=== PATIENT | male | born 1975 | race Caucasian/White ===

== ENCOUNTER 2017-01-10 19:57 | Emergency (ER) | payer BC ==
[2017-01-10 20:13] VITALS: BP 131/86; PULSE 89; RESP 20; TEMP 98.4
--- NOTE | 2017-01-10 20:32 | ED ---
Skin/Abscess/FB HPI - General Chief complaint: Skin/Abscess/Foreign Body Stated complaint: tanning bed burn Time Seen by Provider: 01/10/17 20:21 Source: patient, RN notes reviewed Mode of arrival: ambulatory Limitations: no limitations - History of Present Illness Initial comments: 41-year-old male presents to the emergency Department chief complaint of sunburn. Patient will continue for the first time and he has burning all over the chest in the back. He's been trying aloe and Motrin at home with no improvement in his symptoms. He's been trying back. Patient states that nothing seems to make it better he is just very miserable that he should be seen.Patient denies any recent fever, chills, shortness of breath, chest pain, back pain, abdominal pain, nausea vomiting, numbness or tingling, dysuria or hematuria, constipation or diarrhea, headaches or visual changes, or any other current symptoms. - Related Data Previous Rx's Medication Instructions Recorded Diazepam [Valium] 5 mg PO HS #5 tab 01/10/17 Hydrocodone/Acetaminophen [[place] 1 each PO Q6HR PRN #20 tab 01/10/17 5-325] Allergies Allergy/AdvReac Type Severity Reaction Status Date / Time No Known Allergies Allergy Verified 01/10/17 20:13 Review of Systems ROS Statement: Those systems with pertinent positive or pertinent negative responses have been documented in the HPI. ROS Other: All systems not noted in ROS Statement are negative. Past Medical History Past Medical History: Asthma, Chest Pain / Angina, Hypertension Additional Past Medical History / Comment(s): HAS BEEN HAVING EPISODES OF BLACK STOOL FOR PAST MONTH History of Any Multi-Drug Resistant Organisms: None Reported Past Surgical History: No Surgical Hx Reported Additional Past Surgical History / Comment(s): PAIN CLINIC PROCEDURE ,WISDOM TEETH Past Anesthesia/Blood Transfusion Reactions: No Reported Reaction Past Psychological History: No Psychological Hx Reported Smoking Status: Never smoker Past Alcohol Use History: Occasional Past Drug Use History: None Reported - Past Family History Father Family Medical History: Cancer General Exam Limitations: no limitations General appearance: alert, in no apparent distress Neck exam: Present: normal inspection. Absent: tenderness, meningismus, lymphadenopathy Respiratory exam: Present: normal lung sounds bilaterally. Absent: respiratory distress, wheezes, rales, rhonchi, stridor Cardiovascular Exam: Present: regular rate, normal rhythm, normal heart sounds. Absent: systolic murmur, diastolic murmur, rubs, gallop, clicks Neurological exam: Present: alert, oriented X3, CN II-XII intact. Absent: motor sensory deficit Psychiatric exam: Present: normal affect, normal mood Skin exam: Present: warm, dry, other (Extensive sunburn to chest and back) Course Vital Signs 01/10/17 20:11 Temperature 98.4 F Pulse Rate 89 Respiratory 20 Rate Blood Pressure 131/86 O2 Sat by Pulse 98 Oximetry Medical Decision Making - Medical Decision Making 41-year-old male presents for first-degree burn due to a sunburn to the chest and back. Simvastatin [place] for pain. We discussed aloe we discussed Motrin. At this time we will give him Valium to help him sleep at night due to his discomfort. We discussed. We discussed follow-up we discussed return parameters. We discussed all the patient's questions. He stated he understood anything agreement with plan. This time the patient will be discharged home. Disposition Clinical Impression: Sunburn due to tanning bed Disposition: HOME SELF-CARE Condition: Stable Instructions: Sunburn (ED) Additional Instructions: Please use medication as discussed. Please follow up with family doctor if symptoms have not improved over the next two days. Please return to the emergency room if your symptoms increase or worsen or for any other concerns. Prescriptions: Diazepam [Valium] 5 mg PO HS #5 tab Hydrocodone/Acetaminophen [[place] 5-325] 1 each PO Q6HR PRN #20 tab PRN Reason: Pain Referrals: Avery Victoria DO [Primary Care Provider] - 1-2 days Time of Disposition: 20:31
== END 2017-01-10 20:45 | disposition home or self-care (01) ==
LOC: EC 19:57
DX: L56.8 Other specified acute skin changes due to ultraviolet radiation (principal)
CPT/HCPCS: 99282

== ENCOUNTER 2017-03-10 14:31 | Emergency (ER) | payer BC ==
[2017-03-10 15:06] VITALS: TEMP 98.3
[2017-03-10] MEDS ORDERED: ORPHENADRINE 30 MG/ML 2 ML VIAL IM STA (16:45)
[2017-03-10] MEDS ORDERED: KETOROLAC 60 MG/2 ML VIAL IM STA (16:45)
--- NOTE | 2017-03-10 16:49 | ED ---
Back Pain HPI - General Chief Complaint: Back Pain/Injury Stated Complaint: Leg Pain Time Seen by Provider: 03/10/17 16:37 Source: patient, RN notes reviewed Limitations: no limitations - History of Present Illness Initial Comments: 41-year-old male presents to the emergency department with a chief complaint of back pain. Patient suffers from chronic back pain. Patient states tingling on for about 10 years. Patient states there is no flares up and radiates down his right leg. Patient states he's had this the last 2 days. Patient states he tried [id number] Motrin Tylenol with no improvement to his symptoms. There is been no nausea or vomiting. No loss of bowel or bladder function. They were concerned due to the worsening pains without there may be something we can do to help him feel better. They deny any other symptoms at this time. They deny any injury. Patient denies any recent fever, chills, shortness of breath, chest pain, abdominal pain, nausea vomiting, numbness or tingling, dysuria or hematuria, constipation or diarrhea, headaches or visual changes, or any other current symptoms. - Related Data Home Medications Medication Instructions Recorded Confirmed Hydrochlorothiazide 25 mg PO DAILY 03/10/17 03/10/17 [Hydrochlorothiazide] Previous Rx's Medication Instructions Recorded Orphenadrine [Norflex] 100 mg PO Q12H #10 tablet.er 03/10/17 predniSONE 50 mg PO DAILY #5 tab 03/10/17 traMADol HCl [Ultram] 50 mg PO Q4H PRN #20 tab 03/10/17 Allergies Allergy/AdvReac Type Severity Reaction Status Date / Time No Known Allergies Allergy Verified 03/10/17 15:06 Review of Systems ROS Statement: Those systems with pertinent positive or pertinent negative responses have been documented in the HPI. ROS Other: All systems not noted in ROS Statement are negative. Past Medical History Past Medical History: Asthma, Chest Pain / Angina, Hypertension Additional Past Medical History / Comment(s): HAS BEEN HAVING EPISODES OF BLACK STOOL FOR PAST MONTH History of Any Multi-Drug Resistant Organisms: None Reported Past Surgical History: No Surgical Hx Reported Additional Past Surgical History / Comment(s): PAIN CLINIC PROCEDURE ,WISDOM TEETH Past Anesthesia/Blood Transfusion Reactions: No Reported Reaction Past Psychological History: No Psychological Hx Reported Smoking Status: Never smoker Past Alcohol Use History: Occasional Past Drug Use History: None Reported - Past Family History Father Family Medical History: Cancer General Exam Limitations: no limitations General appearance: alert, in no apparent distress Eye exam: Present: normal appearance, PERRL, EOMI. Absent: scleral icterus, conjunctival injection, periorbital swelling ENT exam: Present: normal exam, mucous membranes moist Neck exam: Present: normal inspection. Absent: tenderness, meningismus, lymphadenopathy Respiratory exam: Present: normal lung sounds bilaterally. Absent: respiratory distress, wheezes, rales, rhonchi, stridor Cardiovascular Exam: Present: regular rate, normal rhythm, normal heart sounds. Absent: systolic murmur, diastolic murmur, rubs, gallop, clicks Back exam: Present: normal inspection, full ROM, other (Positive right straight leg raise on the right). Absent: tenderness, CVA tenderness (R), CVA tenderness (L), muscle spasm, paraspinal tenderness, vertebral tenderness, rash noted Neurological exam: Present: alert, oriented X3 Psychiatric exam: Present: normal affect, normal mood Skin exam: Present: warm, dry, intact, normal color. Absent: rash Course Vital Signs 03/10/17 15:00 Temperature 98.3 F Pulse Rate 78 Respiratory 18 Rate Blood Pressure 143/87 O2 Sat by Pulse 97 Oximetry Medical Decision Making - Medical Decision Making 41-year-old male presents for low back pain with radiation of the right leg. This time patient's symptoms are most consistent with sciatica. This time and discussed with prednisone and muscle relaxers. We discussed follow-up and [facility] We discussed return parameters all patient's questions. He stated he understood and he is in agreement plan. He will be discharged home. Disposition Clinical Impression: Sciatica, right side Disposition: HOME SELF-CARE Condition: Stable Instructions: Sciatica (ED), Lower Back Exercises (ED) Additional Instructions: Please use medication as discussed. Please follow up with family doctor if symptoms have not improved over the next two days. Please return to the emergency room if your symptoms increase or worsen or for any other concerns. Prescriptions: Orphenadrine [Norflex] 100 mg PO Q12H #10 tablet.er predniSONE 50 mg PO DAILY #5 tab traMADol HCl [Ultram] 50 mg PO Q4H PRN #20 tab PRN Reason: Pain Referrals: Avery Victoria DO [Primary Care Provider] - 1-2 days Abbey Moody DO [Doctor of Osteopathic Medicine] - 1-2 days Time of Disposition: 16:49
[2017-03-10 16:58] VITALS: BP 140/68; PULSE 80; RESP 20
== END 2017-03-10 16:57 | disposition home or self-care (01) ==
LOC: EC 14:31
DX: M54.31 Sciatica, right side (principal); I10 Essential (primary) hypertension; Z79.899 Other long term (current) drug therapy
CPT/HCPCS: 99283; 96372 ×2; J2360; J1885

== ENCOUNTER 2017-07-11 19:32 | Emergency (ER) | payer BC, OTHER ==
[2017-07-11 19:40] VITALS: BP 138/72; PULSE 82; RESP 18; TEMP 97.4
--- NOTE | 2017-07-11 19:54 | ED ---
URI HPI - General Chief Complaint: Upper Respiratory Infection Stated Complaint: Sore Throat Time Seen by Provider: 07/11/17 19:41 Source: patient, RN notes reviewed Mode of arrival: ambulatory Limitations: no limitations - History of Present Illness Initial Comments: 42-year-old male presents emergency Department chief complaint of URI symptoms times has for 5 days. Patient states is progressively getting worse. Patient has sinus pressure, drainage. Patient states she has a productive cough in the morning which improves throughout the day. He does have a history of asthma and states that he has used his inhaler more now and he has been wheezing. Patient denies any fever, chills. Patient does complain of sinus headache. Patient states his chest and [id number] medications no relief. Patient states that initially had a sore throat but states that those improving. Drainage worse. - Related Data Home Medications Medication Instructions Recorded Confirmed Hydrochlorothiazide 25 mg PO DAILY 03/10/17 03/10/17 [Hydrochlorothiazide] Previous Rx's Medication Instructions Recorded Orphenadrine [Norflex] 100 mg PO Q12H #10 tablet.er 03/10/17 predniSONE 50 mg PO DAILY #5 tab 03/10/17 traMADol HCl [Ultram] 50 mg PO Q4H PRN #20 tab 03/10/17 Amoxicillin/Potassium Clav 1 tab PO Q12HR #20 tab 07/11/17 [Augmentin 875-125 Tablet] Fluticasone Nasal [place] [Flonase 2 spr EA NOSTRIL DAILY #1 bottle 07/11/17 Nasal [place]] methylPREDNISolone [Medrol Dose 4 mg PO DIRECTED #1 pack 07/11/17 Pack] Allergies Allergy/AdvReac Type Severity Reaction Status Date / Time No Known Allergies Allergy Verified 07/11/17 19:36 Review of Systems ROS Statement: Those systems with pertinent positive or pertinent negative responses have been documented in the HPI. ROS Other: All systems not noted in ROS Statement are negative. Past Medical History Past Medical History: Asthma, Chest Pain / Angina, Hypertension Additional Past Medical History / Comment(s): HAS BEEN HAVING EPISODES OF BLACK STOOL FOR PAST MONTH History of Any Multi-Drug Resistant Organisms: None Reported Past Surgical History: No Surgical Hx Reported Additional Past Surgical History / Comment(s): PAIN CLINIC PROCEDURE ,WISDOM TEETH Past Anesthesia/Blood Transfusion Reactions: No Reported Reaction Past Psychological History: No Psychological Hx Reported Smoking Status: Never smoker Past Alcohol Use History: Occasional Past Drug Use History: None Reported - Past Family History Father Family Medical History: Cancer General Exam Limitations: no limitations General appearance: alert, in no apparent distress Head exam: Present: atraumatic, normocephalic, normal inspection Eye exam: Present: normal appearance, PERRL, EOMI. Absent: scleral icterus, conjunctival injection, periorbital swelling ENT exam: Present: mucous membranes moist, TM's normal bilaterally, normal external ear exam, other (Sinus tenderness). Absent: normal oropharynx ( Postnasal drainage) Neck exam: Present: normal inspection, full ROM. Absent: tenderness, meningismus, lymphadenopathy Respiratory exam: Present: normal lung sounds bilaterally. Absent: respiratory distress, wheezes, rales, rhonchi, stridor Cardiovascular Exam: Present: regular rate, normal rhythm, normal heart sounds. Absent: systolic murmur, diastolic murmur, rubs, gallop, clicks GI/Abdominal exam: Present: soft, normal bowel sounds. Absent: distended, tenderness, guarding, rebound, rigid Skin exam: Present: warm, dry, intact, normal color. Absent: rash Course Vital Signs 07/11/17 19:37 Temperature 97.4 F L Pulse Rate 82 Respiratory 18 Rate Blood Pressure 138/72 O2 Sat by Pulse 96 Oximetry Medical Decision Making - Medical Decision Making 42-year-old male presented for URI symptoms. Patient has acute sinusitis will be placed on Augmentin. Patient does have a history of asthma and complaining of some wheezing there is clear at this time. Patient we given a steroid and Flonase. Return parameters were discussed. Disposition Clinical Impression: Sinusitis Disposition: HOME SELF-CARE Condition: Stable Instructions: Sinusitis (ED) Additional Instructions: Please return to the Emergency Department if symptoms worsen or any other concerns. Prescriptions: Amoxicillin/Potassium Clav [Augmentin 875-125 Tablet] 1 tab PO Q12HR #20 tab Fluticasone Nasal [place] [Flonase Nasal [place]] 2 spr EA NOSTRIL DAILY #1 bottle methylPREDNISolone [Medrol Dose Pack] 4 mg PO DIRECTED #1 pack Referrals: Avery Victoria DO [Primary Care Provider] - 1-2 days Time of Disposition: 19:54
[2017-07-11] MEDS ORDERED: cefTRIAXone 1,000 MG VIAL (IM USE) IM STA (20:04)
== END 2017-07-11 20:25 | disposition home or self-care (01) ==
LOC: EC 19:32
DX: J32.9 Chronic sinusitis, unspecified (principal); I10 Essential (primary) hypertension; Z79.899 Other long term (current) drug therapy
CPT/HCPCS: 99283; 96372; J0696

== ENCOUNTER 2019-06-07 07:58 | Emergency (ER) | payer BC ==
[2019-06-07 08:09] VITALS: RESP 18
[2019-06-07] MEDS ORDERED: ONDANSETRON 4 MG/2 ML VIAL IVP STA (08:16)
[2019-06-07] MEDS ORDERED: HYDROmorphone 0.5 MG/0.5 ML SYRINGE IVP STA (08:16)
[2019-06-07] MEDS ORDERED: SODIUM CHLORIDE 0.9% 1,000 ML IV STA (08:16)
--- NOTE | 2019-06-07 08:19 | ED ---
General Adult HPI - General Chief complaint: Abdominal Pain Stated complaint: Abd.pain/vomiting/sob Time Seen by Provider: 06/07/19 08:10 Source: patient, family, RN notes reviewed Mode of arrival: ambulatory Limitations: no limitations - History of Present Illness Initial comments: Patient 44-year-old male presented to the emergency room today with chief complaint of increased abdominal pain with nausea and vomiting. Patient does admit that symptoms started around 2 AM with symptoms of nausea after eating. 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 Patient states that starting to feel better stop to get something to eat on his way home from work and the pain increased. States is experiencing increased pain in the upper right side and epigastric area. Patient does admit to some radiation to the back. Patient denies any other complaints or symptoms. Patient denies any recent fever, chills, shortness of breath, chest pain, back pain, headaches or visual changes, or any other complaints. - Related Data Home Medications Medication Instructions Recorded Confirmed Albuterol Inhaler [Ventolin Hfa 2 puff INHALATION RT-Q6H PRN 07/11/17 07/11/17 Inhaler] Cetirizine HCl [Zyrtec] 10 mg PO DAILY 07/11/17 07/11/17 Cholecalciferol [Vitamin D3] 1,000 unit PO DAILY 07/11/17 07/11/17 D-Methorphan/PE/Acetaminophen 1 tab PO DAILY PRN 07/11/17 07/11/17 [Theraflu Multi-Symp Cold Cplt] Dm/Acetaminophen/Doxylamine [Vicks 30 ml PO HS PRN 07/11/17 07/11/17 Nyquil Cold & Flu Liquid] Metoprolol Tartrate [Lopressor] 50 mg PO DAILY 07/11/17 07/11/17 Multivitamins, Thera [Multivitamin 1 tab PO DAILY 07/11/17 07/11/17 (formulary)] Previous Rx's Medication Instructions Recorded Amoxicillin/Potassium Clav 1 tab PO Q12HR #20 tab 07/11/17 [Augmentin 875-125 Tablet] Fluticasone Nasal [place] [Flonase 2 spr EA NOSTRIL DAILY #1 bottle 07/11/17 Nasal [place]] methylPREDNISolone [Medrol Dose 4 mg PO DIRECTED #1 pack 07/11/17 Pack] Ondansetron Odt [Zofran ODT] 4 mg PO Q8HR PRN #20 tab 06/07/19 Allergies Allergy/AdvReac Type Severity Reaction Status Date / Time No Known Allergies Allergy Verified 06/07/19 08:06 Review of Systems ROS Statement: Those systems with pertinent positive or pertinent negative responses have been documented in the HPI. ROS Other: All systems not noted in ROS Statement are negative. Past Medical History Past Medical History: Asthma, Chest Pain / Angina, Hypertension Additional Past Medical History / Comment(s): HAS BEEN HAVING EPISODES OF BLACK STOOL FOR PAST MONTH History of Any Multi-Drug Resistant Organisms: None Reported Past Surgical History: No Surgical Hx Reported Additional Past Surgical History / Comment(s): PAIN CLINIC PROCEDURE ,WISDOM TEETH Past Anesthesia/Blood Transfusion Reactions: No Reported Reaction Past Psychological History: No Psychological Hx Reported Smoking Status: Never smoker Past Alcohol Use History: Occasional Past Drug Use History: None Reported - Past Family History Father Family Medical History: Cancer General Exam - General Exam Comments Initial Comments: General: The patient is awake and alert, in no distress, and does not appear acutely ill. Ears, nose, mouth and throat: There are moist mucous membranes and no oral lesions. Neck: The neck is supple, there is no tenderness or JVD. Cardiovascular: There is a regular rate and rhythm. No murmur, rub or gallop is appreciated. Respiratory: Lungs are clear to auscultation, respirations are non-labored, breath sounds are equal. No wheezes, stridor, rales, or rhonchi. Gastrointestinal: I'm soft on palpation. Patient does have tenderness epigastric right upper quadrant. No rebound, guarding. Musculoskeletal: Normal ROM, no tenderness. Strength 5/5. Sensation intact. Neurological: A&O x 3. CN II-XII intact, There are no obvious motor or sensory deficits. Coordination appears grossly intact. Speech is normal. Skin: Skin is warm and dry and no rashes or lesions are noted. Psychiatric: Cooperative, appropriate mood & affect, normal judgment. Limitations: no limitations Course Vital Signs 06/07/19 08:06 Temperature 97.6 F Pulse Rate 71 Respiratory 18 Rate Blood Pressure 126/85 O2 Sat by Pulse 98 Oximetry Medical Decision Making - Medical Decision Making Patient's labs been reviewed and are unremarkable. Normal white count. Patient's liver enzymes are normal. Alk phos and bilirubin are negative. Patient's ultrasound been reviewed. It is possible gallstones visualized. No evidence for inflammation for obvious acute cholecystitis at this time. Patient is comfortable. Options were discussed with the patient he feels comfortable being discharged home currently. Be given information to follow-up with surgeon for further evaluation. He is advised to return to emergency room symptoms increase worsen. Stay and is in agreement. - Lab Data Result diagrams: 06/07/19 08:25 06/07/19 08:25 Lab Results 06/07/19 06/07/19 06/07/19 Range/Units 08:25 08:25 08:25 WBC 4.6 (3.8-10.6) k/uL RBC 5.26 (4.30-5.90) m/uL Hgb 13.7 (13.0-17.5) gm/dL Hct 43.3 (39.0-53.0) % MCV 82.4 (80.0-100.0) fL MCH 26.1 (25.0-35.0) pg MCHC 31.7 (31.0-37.0) g/dL RDW 14.8 (11.5-15.5) % Plt Count 228 (150-450) k/uL Neutrophils % 61 % Lymphocytes % 29 % Monocytes % 6 % Eosinophils % 3 % Basophils % 0 % Neutrophils # 2.8 (1.3-7.7) k/uL Lymphocytes # 1.3 (1.0-4.8) k/uL Monocytes # 0.3 (0-1.0) k/uL Eosinophils # 0.1 (0-0.7) k/uL Basophils # 0.0 (0-0.2) k/uL Sodium 143 (137-145) mmol/L Potassium 3.9 (3.5-5.1) mmol/L Chloride 107 (98-107) mmol/L Carbon Dioxide 28 (22-30) mmol/L Anion Gap 8 mmol/L BUN 13 (9-20) mg/dL Creatinine 0.72 (0.66-1.25) mg/dL Est GFR (CKD-EPI)AfAm >90 (>60 ml/min/1.73 sqM) Est GFR (CKD-EPI)NonAf >90 (>60 ml/min/1.73 sqM) Glucose 124 H (74-99) mg/dL Calcium 9.0 (8.4-10.2) mg/dL Total Bilirubin 1.1 (0.2-1.3) mg/dL AST 27 (17-59) U/L ALT 37 (21-72) U/L Alkaline Phosphatase 74 (38-126) U/L Troponin I <0.012 (0.000-0.034) ng/mL Total Protein 6.8 (6.3-8.2) g/dL Albumin 4.0 (3.5-5.0) g/dL Amylase 54 (30-110) U/L Lipase 86 (23-300) U/L Disposition Clinical Impression: Abdominal pain Disposition: HOME SELF-CARE Condition: Good Instructions (If sedation given, give patient instructions): Abdominal Pain (ED) Additional Instructions: Please use medication as discussed. Please follow-up with surgeon/family doctor in the next 2 days of symptoms have not improved. Please return to emergency room if the symptoms increase or worsen or for any other concerns. Prescriptions: Ondansetron Odt [Zofran ODT] 4 mg PO Q8HR PRN #20 tab PRN Reason: Nausea Is patient prescribed a controlled substance at d/c from ED?: No Referrals: Edel Cox MD [Primary Care Provider] - 1-2 days Douglas Biu DO [Doctor of Osteopathic Medicine] - 1-2 days Time of Disposition: 10:02
[2019-06-07] MEDS ORDERED: diphenhydrAMINE 50 MG/ML 1 ML VIAL IVP STA (08:35)
[2019-06-07 08:42] LABS: Basophils % (A) 0 %; Eosinophils # (A) 0.1 k/uL (0-0.7); Eosinophils % (A) 3 %; HCT 43.3 % (39.0-53.0); HGB 13.7 gm/dL (13.0-17.5); Lymphocytes # (A) 1.3 k/uL (1.0-4.8); Lymphocytes % (A) 29 %; MCH 26.1 pg (25.0-35.0); MCHC 31.7 g/dL (31.0-37.0); MCV 82.4 fL (80.0-100.0); Mean Platelet Volume 6.5; Monocytes # (A) 0.3 k/uL (0-1.0); Monocytes % (A) 6 %; Neutrophils # (A) 2.8 k/uL (1.3-7.7); Neutrophils % (A) 61 %; Platelet Count 228 k/uL (150-450); RBC 5.26 m/uL (4.30-5.90); RDW 14.8 % (11.5-15.5); WBC 4.6 k/uL (3.8-10.6)
[2019-06-07 08:54] LABS: ALT 37 U/L (21-72); AST 27 U/L (17-59); African American GFR (CKD) >90 (>60 ml/min/1.73 sqM); Alkaline Phosphatase 74 U/L (38-126); Amylase 54 U/L (30-110); Anion Gap 8 mmol/L; Blood Urea Nitrogen 13 mg/dL (9-20); Carbon Dioxide 28 mmol/L (22-30); Chloride 107 mmol/L (98-107); Glucose 124 mg/dL (74-99); Potassium 3.9 mmol/L (3.5-5.1); Sodium 143 mmol/L (137-145); Total Bilirubin 1.1 mg/dL (0.2-1.3); Total Protein 6.8 g/dL (6.3-8.2)
--- NOTE | 2019-06-07 09:27 | US ---
EXAMINATION TYPE: US abdomen limited DATE OF EXAM: 06/07/2019 COMPARISON: NONE CLINICAL HISTORY: Pain. RUQ pain since last night, vomiting, patient not NPO - ate 1 to 2 hours ago EXAM MEASUREMENTS: Liver Length: 19.3 cm Gallbladder Wall: 0.3 cm CBD: 0.5 cm Right Kidney: 10.7 x 4.4 x 5.0 cm Technical limitations due to patient's body habitus and large amount of overlying bowel content Pancreas: Obscured by bowel gas Liver: enlarged, attenuating Gallbladder: hydropic with probable stone near neck = 2.2cm Evidence for sonographic Stubbs's sign: yes CBD: visualized portion appears wnl Right Kidney: no evidence of hydronephrosis There is no ascites. Right kidney shows normal cortical medullary differentiation. IMPRESSION: Technically limited exam. Findings may be indicative of hepatic steatosis, hepatomegaly. Hydropic gallbladder with calculus at the level of the neck of the gallbladder. Borderline gallbladde r wall thickening, correlate for possible cholecystitis.
[2019-06-07 10:30] VITALS: BP 118/70; PULSE 74; TEMP 98
== END 2019-06-07 10:31 | disposition home or self-care (01) ==
LOC: EC 07:58
DX: R10.11 Right upper quadrant pain (principal); R10.13 Epigastric pain; R11.2 Nausea with vomiting, unspecified; M54.9 Dorsalgia, unspecified; J45.909 Unspecified asthma, uncomplicated; I10 Essential (primary) hypertension; Z79.899 Other long term (current) drug therapy
CPT/HCPCS: 36415; 93005; 80053; 82150; 83690; 84484; 85025; 76705; 99284; 96374; 96375 ×2; 96361; J1200; J2405; J1170

== ENCOUNTER 2019-06-09 03:27 | Emergency (ER) | payer BC ==
[2019-06-09 03:55] VITALS: TEMP 97.8
[2019-06-09 03:55] LABS: Basophils % (A) 0 %; Eosinophils # (A) 0.1 k/uL (0-0.7); Eosinophils % (A) 3 %; HCT 43.5 % (39.0-53.0); HGB 14.3 gm/dL (13.0-17.5); Lymphocytes # (A) 1.1 k/uL (1.0-4.8); Lymphocytes % (A) 26 %; MCH 26.6 pg (25.0-35.0); MCHC 32.7 g/dL (31.0-37.0); MCV 81.3 fL (80.0-100.0); Mean Platelet Volume 6.4; Monocytes # (A) 0.4 k/uL (0-1.0); Monocytes % (A) 9 %; Neutrophils # (A) 2.6 k/uL (1.3-7.7); Neutrophils % (A) 59 %; Platelet Count 198 k/uL (150-450); RBC 5.36 m/uL (4.30-5.90); RDW 14.9 % (11.5-15.5); WBC 4.4 k/uL (3.8-10.6)
[2019-06-09 04:04] LABS: ALT 30 U/L (21-72); AST 31 U/L (17-59); African American GFR (CKD) >90 (>60 ml/min/1.73 sqM); Albumin 4.2 g/dL (3.5-5.0); Alkaline Phosphatase 67 U/L (38-126); Amylase 50 U/L (30-110); Anion Gap 6 mmol/L; Blood Urea Nitrogen 14 mg/dL (9-20); Calcium 9.2 mg/dL (8.4-10.2); Carbon Dioxide 28 mmol/L (22-30); Chloride 107 mmol/L (98-107); Glucose 135 mg/dL (74-99); Non-African American GFR(CKD) >90 (>60 ml/min/1.73 sqM); Sodium 141 mmol/L (137-145); Total Bilirubin 0.9 mg/dL (0.2-1.3)
[2019-06-09 04:06] LABS: Potassium 4.2 mmol/L (3.5-5.1)
[2019-06-09] MEDS ORDERED: ONDANSETRON 4 MG/2 ML VIAL IVP STA (04:27)
[2019-06-09] MEDS ORDERED: MORPHINE SULFATE 4 MG/ML SYRINGE IVP STA ×2 (04:27→06:10)
--- NOTE | 2019-06-09 04:29 | XR ---
EXAM: XR Abdomen, 1 View CLINICAL HISTORY: ITS.REASON XR Reason: abdominal pain TECHNIQUE: Frontal supine view of the abdomen/pelvis. COMPARISON: No relevant prior studies available. FINDINGS: Gastrointestinal tract: There is a relative possibly of bowel gas throughout the abdomen with minimal gas noted in the stomach and the ascending colon. There is some gas suggested in the central pelvis which is presumed in the sigmoid colon. No dilation. Bones/joints: Unremarkable. Tubes, lines and devices: Overlying EKG lead artifact is noted. IMPRESSION: Relative paucity bowel gas is nonspecific and may be normal variation. However, fluid-filled loops of bowel may also give this appearance. No dilated bowel loops or gastric distention, definitive for bowel obstruction. Further potential imaging should be based on clinical criteria.
--- NOTE | 2019-06-09 05:01 | ED ---
Abdominal Pain HPI - General Chief Complaint: Abdominal Pain Stated Complaint: revisit/gallbladder Time Seen by Provider: 06/09/19 03:30 Source: patient, family Mode of arrival: ambulatory Limitations: no limitations - History of Present Illness Initial Comments: Harjeet is an obese 44-year-old gentleman who was seen and evaluated earlier this week and diagnosed with gallstones, patient returns to the emergency department today for reevaluation of right upper quadrant abdominal pain. Patient reports that he had macaroni and cheese for dinner and immediately developed pain in his right upper quadrant afterwards. Pain is sharp stabbing in the right upper quadrant and associated with nausea but no vomiting. Patient denies any change in bowel or bladder habits his last bowel movement was this afternoon and was normal in color caliber and consistency. Patient states he was told to make dietary modifications however his understanding was essentially that he could not eat anything so he decided not to make any modifications. Patient was referred to surgery for outpatient management, he states that he contacted the surgeon's office but has not established follow-up visit. - Related Data Home Medications Medication Instructions Recorded Confirmed Albuterol Inhaler [Ventolin Hfa 2 puff INHALATION RT-Q6H PRN 07/11/17 07/11/17 Inhaler] Cetirizine HCl [Zyrtec] 10 mg PO DAILY 07/11/17 07/11/17 Cholecalciferol [Vitamin D3] 1,000 unit PO DAILY 07/11/17 07/11/17 D-Methorphan/PE/Acetaminophen 1 tab PO DAILY PRN 07/11/17 07/11/17 [Theraflu Multi-Symp Cold Cplt] Dm/Acetaminophen/Doxylamine [Vicks 30 ml PO HS PRN 07/11/17 07/11/17 Nyquil Cold & Flu Liquid] Metoprolol Tartrate [Lopressor] 50 mg PO DAILY 07/11/17 07/11/17 Multivitamins, Thera [Multivitamin 1 tab PO DAILY 07/11/17 07/11/17 (formulary)] Previous Rx's Medication Instructions Recorded Amoxicillin/Potassium Clav 1 tab PO Q12HR #20 tab 07/11/17 [Augmentin 875-125 Tablet] Fluticasone Nasal [place] [Flonase 2 spr EA NOSTRIL DAILY #1 bottle 07/11/17 Nasal [place]] methylPREDNISolone [Medrol Dose 4 mg PO DIRECTED #1 pack 07/11/17 Pack] Ondansetron Odt [Zofran ODT] 4 mg PO Q8HR PRN #20 tab 06/07/19 Allergies Allergy/AdvReac Type Severity Reaction Status Date / Time No Known Allergies Allergy Verified 06/09/19 03:34 Review of Systems ROS Statement: Those systems with pertinent positive or pertinent negative responses have been documented in the HPI. ROS Other: All systems not noted in ROS Statement are negative. Past Medical History Past Medical History: Asthma, Chest Pain / Angina, Hypertension Additional Past Medical History / Comment(s): HAS BEEN HAVING EPISODES OF BLACK STOOL FOR PAST MONTH History of Any Multi-Drug Resistant Organisms: None Reported Past Surgical History: No Surgical Hx Reported Additional Past Surgical History / Comment(s): PAIN CLINIC PROCEDURE ,WISDOM TEETH Past Anesthesia/Blood Transfusion Reactions: No Reported Reaction Past Psychological History: No Psychological Hx Reported Smoking Status: Never smoker Past Alcohol Use History: Occasional Past Drug Use History: None Reported - Past Family History Father Family Medical History: Cancer General Exam - General Exam Comments Initial Comments: Physical Exam GENERAL: Patient is well-developed and well-nourished. Patient is nontoxic and well-hydrated and is in no distress. HENT: Normocephalic, Atraumatic. EYES: PERRL, EOMI PULMONARY: Unlabored respirations. No audible rales rhonchi or wheezing was noted. CARDIOVASCULAR: There is a regular rate and rhythm without any murmurs gallops or rubs. ABDOMEN: Soft and nontender with normal bowel sounds. SKIN: Skin is clear with no lesions or rashes and otherwise unremarkable. : Deferred NEUROLOGIC: Patient is alert and oriented x3. Moving all extremities spontaneously MUSCULOSKELETAL: Normal extremities with adequate strength and full range of motion. No lower extremity swelling or edema. No calf tenderness. PSYCHIATRIC: Normal psychiatric evaluation. Limitations: no limitations Course Vital Signs 06/09/19 06/09/19 03:32 06:17 Temperature 97.8 F Pulse Rate 56 L 62 Respiratory 18 17 Rate Blood Pressure 134/87 151/97 O2 Sat by Pulse 96 99 Oximetry Medical Decision Making - Medical Decision Making The patient was seen and evaluated history is obtained from the patient and review of medical record History and physical exam are concerning for symptomatic cholelithiasis as the patient has known gallstones ate a large meal of macaroni and cheese and developed symptoms of pain When I discussed with the patient the need for dietary modification patient's expresses frustration stating that if he follows this there is nothing he can eat Labs were ordered and results were no changes from previous Patient was given a repeat dose of narcotics pending CT results Patient with persistent pain after dose of morphine, a computed tomography scan was ordered to further evaluate the abdomen and resulted with no common bile duct dilatation, no gallbladder edema or abnormality. Results were discussed with patient was now resting comfortably. I advised the patient of findings. At this time the patient is comfortable with plan for discharge home. I again reiterated to the patient the importance of dietary modifications to prevent symptoms. Patient again stated that he thinks there is nothing he can eat if he can't have fatty foods, I encouraged the patient to eat grilled chicken, boiled eggs, fruits, vegetables, breads and [place] without bu tter, patient expressed irritation with this idea. Patient requested by mouth pain medications for management of his pain. I advised again that his pain should be managed by dietary modifications. Patient stated that they will just come back to the ER each time after he eats and develops pain. - Lab Data Result diagrams: 06/09/19 03:46 06/09/19 03:46 Lab Results 06/09/19 06/09/19 Range/Units 03:46 03:46 WBC 4.4 (3.8-10.6) k/uL RBC 5.36 (4.30-5.90) m/uL Hgb 14.3 (13.0-17.5) gm/dL Hct 43.5 (39.0-53.0) % MCV 81.3 (80.0-100.0) fL MCH 26.6 (25.0-35.0) pg MCHC 32.7 (31.0-37.0) g/dL RDW 14.9 (11.5-15.5) % Plt Count 198 (150-450) k/uL Neutrophils % 59 % Lymphocytes % 26 % Monocytes % 9 % Eosinophils % 3 % Basophils % 0 % Neutrophils # 2.6 (1.3-7.7) k/uL Lymphocytes # 1.1 (1.0-4.8) k/uL Monocytes # 0.4 (0-1.0) k/uL Eosinophils # 0.1 (0-0.7) k/uL Basophils # 0.0 (0-0.2) k/uL Sodium 141 (137-145) mmol/L Potassium 4.2 (3.5-5.1) mmol/L Chloride 107 (98-107) mmol/L Carbon Dioxide 28 (22-30) mmol/L Anion Gap 6 mmol/L BUN 14 (9-20) mg/dL Creatinine 0.67 (0.66-1.25) mg/dL Est GFR (CKD-EPI)AfAm >90 (>60 ml/min/1.73 sqM) Est GFR (CKD-EPI)NonAf >90 (>60 ml/min/1.73 sqM) Glucose 135 H (74-99) mg/dL Calcium 9.2 (8.4-10.2) mg/dL Total Bilirubin 0.9 (0.2-1.3) mg/dL AST 31 (17-59) U/L ALT 30 (21-72) U/L Alkaline Phosphatase 67 (38-126) U/L Total Protein 7.0 (6.3-8.2) g/dL Albumin 4.2 (3.5-5.0) g/dL Amylase 50 (30-110) U/L Lipase 97 (23-300) U/L Disposition Clinical Impression: Symptomatic cholelithiasis Disposition: HOME SELF-CARE Condition: Stable Instructions (If sedation given, give patient instructions): Biliary Colic (ED), Gallstones (ED), Low Fat Diet (ED) Is patient prescribed a controlled substance at d/c from ED?: No Referrals: Edel Cox MD [Primary Care Provider] - 1-2 days Mariya Coleman MD [STAFF PHYSICIAN] - 1-2 days
[2019-06-09 06:17] VITALS: BP 151/97; PULSE 62; RESP 17
--- NOTE | 2019-06-09 06:21 | CT ---
EXAM: CT Abdomen and Pelvis With Intravenous Contrast CLINICAL HISTORY: Pain TECHNIQUE: Axial computed tomography images of the abdomen and pelvis with intravenous contrast. CTDI is 32.8 mGy and DLP is 1439.2 mGy-cm. This CT exam was performed using one or more of the following dose reduction techniques: automated exposure control, adjustment of the mA and/or kV according to patient size, and/or use of iterative reconstruction technique. COMPARISON: No relevant prior studies available. FINDINGS: Lung bases: Unremarkable. No mass. No consolidation. ABDOMEN: Liver: Unremarkable. No mass. Gallbladder and bile ducts: Unremarkable. No calcified stones. No ductal dilation. Pancreas: Unremarkable. No mass. No ductal dilation. Spleen: Unremarkable. No splenomegaly. Adrenals: Unremarkable. No mass. Kidneys and ureters: The kidneys demonstrate normal enhancement. There is an incidental nonobstructive 4 mm renal collecting stone noted in the mid to inferior pole the left kidney. Delayed phase imaging demonstrates a 10 mm cortical cyst involving the mid to inferior pole of the anterior right kidney. Suspected smaller cortical cysts are scattered bilaterally but too small to completely characterize. Normal excreted contrast is noted on delayed phase imaging in the renal collecting systems. Stomach and bowel: There are scattered fluid-filled loops of small bowel throughout the abdomen and pelvis. Moderate stool noted in the ascending, transverse and descending colon. No obstruction. No significant focal mucosal thickening. PELVIS: Appendix: A normal caliber appendix is noted in the right lower quadrant. Bladder: Unremarkable. No mass. Reproductive: Unremarkable as visualized. ABDOMEN and PELVIS: Intraperitoneal space: Unremarkable. No free air. No significant fluid collection. Bones/joints: No acute fracture. No dislocation. Soft tissues: Unremarkable. Vasculature: Unremarkable. No abdominal aortic aneurysm. Lymph nodes: Unremarkable. No enlarged lymph nodes. IMPRESSION: There are scattered fluid-filled loops of small bowel throughout the abdomen and pelvis. This may represent normal variation or mild enteritis. No evidence for bowel obstruction. No free intraperitoneal fluid or pneumoperitoneum.
== END 2019-06-09 07:25 | disposition home or self-care (01) ==
LOC: EC 03:27
DX: K80.20 Calculus of gallbladder without cholecystitis without obstruction (principal); J45.909 Unspecified asthma, uncomplicated; I10 Essential (primary) hypertension; Z79.899 Other long term (current) drug therapy; Z86.79 Personal history of other diseases of the circulatory system
CPT/HCPCS: 36415; 80053; 82150; 83690; 85025; 74018; 74177; 99284; 96374; 96375; 96376; J2270; J2405; Q9967

== ENCOUNTER 2019-06-09 17:49 | Observation (INO) | payer BC ==
[2019-06-09] MEDS ORDERED: METOCLOPRAMIDE 5 MG/ML 2 ML VIAL IVP STA (18:14)
[2019-06-09] MEDS ORDERED: SODIUM CHLORIDE 0.9% 1,000 ML IV STA (18:14)
[2019-06-09] MEDS ORDERED: SODIUM CHLORIDE 0.9% 500 ML 500 ML IV STA (18:14)
[2019-06-09] MEDS ORDERED: KETOROLAC 30 MG/ML 1 ML VIAL IVP STA (18:14)
--- NOTE | 2019-06-09 18:17 | ED ---
General Adult HPI - General Chief complaint: Abdominal Pain Stated complaint: RUQ PAIN Time Seen by Provider: 06/09/19 18:01 Source: patient, RN notes reviewed Mode of arrival: ambulatory Limitations: no limitations - History of Present Illness Initial comments: Patient is a pleasant 44-year-old male returning to the emergency Department with complaints of right upper quadrant pain. Patient states he has been here twice in the past 2 days and this is third visit. Patient has discomfort right upper quadrant. Discomfort does get worse with eating. Patient did have ultrasound which showed gallstones. Patient then had computed tomography scan did not show any abnormality. Patient does have associated nausea and did vomit just prior to arrival. No Fevers. - Related Data Home Medications Medication Instructions Recorded Confirmed Albuterol Inhaler [Ventolin Hfa 2 puff INHALATION RT-Q6H PRN 07/11/17 06/09/19 Inhaler] Multivitamins, Thera [Multivitamin 1 tab PO DAILY 07/11/17 06/09/19 (formulary)] Metoprolol Tartrate [Lopressor] 50 mg PO BID 06/09/19 06/09/19 Allergies Allergy/AdvReac Type Severity Reaction Status Date / Time No Known Allergies Allergy Verified 06/09/19 18:39 Review of Systems ROS Statement: Those systems with pertinent positive or pertinent negative responses have been documented in the HPI. ROS Other: All systems not noted in ROS Statement are negative. Constitutional: Denies: fever Eyes: Denies: eye pain ENT: Denies: ear pain Respiratory: Denies: cough Cardiovascular: Denies: chest pain Endocrine: Denies: fatigue Gastrointestinal: Reports: abdominal pain, nausea, vomiting. Denies: diarrhea, constipation Genitourinary: Denies: dysuria Musculoskeletal: Denies: arthralgia Skin: Denies: rash Neurological: Denies: weakness Past Medical History Past Medical History: Asthma, Chest Pain / Angina, Hypertension Additional Past Medical History / Comment(s): HAS BEEN HAVING EPISODES OF BLACK STOOL FOR PAST MONTH History of Any Multi-Drug Resistant Organisms: None Reported Past Surgical History: No Surgical Hx Reported Additional Past Surgical History / Comment(s): PAIN CLINIC PROCEDURE ,WISDOM TEETH Past Anesthesia/Blood Transfusion Reactions: No Reported Reaction Past Psychological History: No Psychological Hx Reported Smoking Status: Never smoker Past Alcohol Use History: Occasional Past Drug Use History: None Reported - Past Family History Father Family Medical History: Cancer General Exam Limitations: no limitations General appearance: alert, in no apparent distress Head exam: Present: atraumatic Eye exam: Present: normal appearance, PERRL ENT exam: Present: normal oropharynx Neck exam: Present: normal inspection Respiratory exam: Present: normal lung sounds bilaterally Cardiovascular Exam: Present: regular rate, normal rhythm Expanded Peripheral pulses: 2+: Dorsalis Pedis (R), Dorsalis Pedis (L) GI/Abdominal exam: Present: soft, tenderness (Moderate tenderness right upper quadrant. Mild tenderness epigastric region), normal bowel sounds. Absent: rebound, rigid, pulsatile mass Extremities exam: Present: normal inspection. Absent: pedal edema, calf tenderness Neurological exam: Present: alert Psychiatric exam: Present: normal affect, normal mood Skin exam: Present: normal color Course Vital Signs 06/09/19 18:00 Temperature 98.5 F Pulse Rate 65 Respiratory 18 Rate Blood Pressure 125/86 O2 Sat by Pulse 98 Oximetry Medical Decision Making - Medical Decision Making Patient reevaluated and still complains of discomfort. Patient updated on re sults. Case discussed with Dr. méndez, who will admit. - Lab Data Result diagrams: 06/09/19 18:30 06/09/19 18:30 Lab Results 06/09/19 06/09/19 06/09/19 Range/Units 18:30 18:30 18:30 WBC 6.0 (3.8-10.6) k/uL RBC 5.43 (4.30-5.90) m/uL Hgb 14.0 (13.0-17.5) gm/dL Hct 44.3 (39.0-53.0) % MCV 81.5 (80.0-100.0) fL MCH 25.7 (25.0-35.0) pg MCHC 31.6 (31.0-37.0) g/dL RDW 14.8 (11.5-15.5) % Plt Count 209 (150-450) k/uL Neutrophils % 73 % Lymphocytes % 15 % Monocytes % 7 % Eosinophils % 2 % Basophils % 0 % Neutrophils # 4.4 (1.3-7.7) k/uL Lymphocytes # 0.9 L (1.0-4.8) k/uL Monocytes # 0.4 (0-1.0) k/uL Eosinophils # 0.1 (0-0.7) k/uL Basophils # 0.0 (0-0.2) k/uL PT 9.9 (9.0-12.0) sec INR 0.9 (<1.2) APTT 25.4 (22.0-30.0) sec Sodium 141 (137-145) mmol/L Potassium 4.3 (3.5-5.1) mmol/L Chloride 106 (98-107) mmol/L Carbon Dioxide 26 (22-30) mmol/L Anion Gap 9 mmol/L BUN 12 (9-20) mg/dL Creatinine 0.76 (0.66-1.25) mg/dL Est GFR (CKD-EPI)AfAm >90 (>60 ml/min/1.73 sqM) Est GFR (CKD-EPI)NonAf >90 (>60 ml/min/1.73 sqM) Glucose 94 (74-99) mg/dL Calcium 9.0 (8.4-10.2) mg/dL Total Bilirubin 1.1 (0.2-1.3) mg/dL AST 31 (17-59) U/L ALT 33 (21-72) U/L Alkaline Phosphatase 83 (38-126) U/L Total Protein 7.1 (6.3-8.2) g/dL Albumin 4.2 (3.5-5.0) g/dL Amylase 49 (30-110) U/L Lipase 73 (23-300) U/L - Radiology Data Radiology results: image reviewed (Abdominal x-ray shows no acute process) Disposition Clinical Impression: Symptomatic cholelithiasis Disposition: ADMITTED IP TO THIS [facility] Is patient prescribed a controlled substance at d/c from ED?: No Referrals: Edel Cox MD [Primary Care Provider] - 1-2 days Decision Time: 19:18
[2019-06-09 18:45] LABS: Basophils % (A) 0 %; Eosinophils # (A) 0.1 k/uL (0-0.7); Eosinophils % (A) 2 %; HCT 44.3 % (39.0-53.0); Lymphocytes # (A) 0.9 k/uL (1.0-4.8); Lymphocytes % (A) 15 %; MCH 25.7 pg (25.0-35.0); MCHC 31.6 g/dL (31.0-37.0); MCV 81.5 fL (80.0-100.0); Mean Platelet Volume 6.5; Monocytes # (A) 0.4 k/uL (0-1.0); Monocytes % (A) 7 %; Neutrophils # (A) 4.4 k/uL (1.3-7.7); Neutrophils % (A) 73 %; Platelet Count 209 k/uL (150-450); RBC 5.43 m/uL (4.30-5.90); RDW 14.8 % (11.5-15.5)
[2019-06-09 18:51] LABS: INR 0.9 (<1.2); Partial Thromboplastin Time 25.4 sec (22.0-30.0); Prothrombin Time 9.9 sec (9.0-12.0)
--- NOTE | 2019-06-09 18:58 | XR ---
EXAMINATION TYPE: XR KUB DATE OF EXAM: 06/09/2019 COMPARISON: Today HISTORY: Right upper quadrant pain TECHNIQUE: 2 views upright FINDINGS: There is no sign of intestinal obstruction or pneumoperitoneum. Fecal pattern is normal. Th ere is no sign of a mass. Lung bases are clear. IMPRESSION: Nonacute abdomen. No change.
[2019-06-09 19:04] LABS: ALT 33 U/L (21-72); AST 31 U/L (17-59); African American GFR (CKD) >90 (>60 ml/min/1.73 sqM); Albumin 4.2 g/dL (3.5-5.0); Alkaline Phosphatase 83 U/L (38-126); Amylase 49 U/L (30-110); Anion Gap 9 mmol/L; Blood Urea Nitrogen 12 mg/dL (9-20); Carbon Dioxide 26 mmol/L (22-30); Chloride 106 mmol/L (98-107); Glucose 94 mg/dL (74-99); Potassium 4.3 mmol/L (3.5-5.1); Sodium 141 mmol/L (137-145); Total Bilirubin 1.1 mg/dL (0.2-1.3); Total Protein 7.1 g/dL (6.3-8.2)
[2019-06-09] MEDS ORDERED: HYDROmorphone 1 MG/ML 1 ML SYRINGE IVP STA (19:07)
[2019-06-09] MEDS ORDERED: NALOXONE 0.4 MG/ML 1 ML VIAL IV PRN (19:18)
[2019-06-09] MEDS: ONDANSETRON 4 MG/2 ML VIAL IVP PRN (19:30)
[2019-06-09] MEDS ORDERED: ALBUTEROL NEBULIZED 2.5 MG/3 ML INHALATION PRN (19:49)
[2019-06-09] MEDS: AMPICILLIN-SULBACTAM 1.5 GM in SODIUM CHLORIDE 0.9% 50 ML IVPB SCH (22:17)
[2019-06-09] MEDS: HYDROmorphone 1 MG/ML 1 ML SYRINGE IVP PRN (22:19)
[2019-06-09] MEDS: PANTOPRAZOLE 40 MG/10 ML VIAL IV SCH (22:21)
[2019-06-09] MEDS: METOPROLOL TARTRATE 50 MG TAB PO SCH (22:29)
[2019-06-09] MEDS: SODIUM CHLORIDE 0.9% 1,000 ML IV SCH (22:30)
[2019-06-10 00:53] LABS: Appearance,Urine Clear (Clear); Bilirubin,Urine Negative (Negative); Blood,Urine Negative (Negative); Color,Urine Yellow; Glucose,Urine (UA) Negative (Negative); Ketones,Urine Negative (Negative); Leukocyte Esterase,Urine Negative (Negative); Nitrite,Urine Negative (Negative); PH, Urine 6.5 (5.0-8.0); Protein,Urine Negative (Negative); Urobilinogen,Urine <2.0 mg/dL (<2.0)
[2019-06-10] MEDS: HYDROmorphone 1 MG/ML 1 ML SYRINGE IVP PRN ×7 (01:20→23:15)
[2019-06-10] MEDS: AMPICILLIN-SULBACTAM 1.5 GM in SODIUM CHLORIDE 0.9% 50 ML IVPB SCH ×4 (01:20→23:22)
[2019-06-10] MEDS: SODIUM CHLORIDE 0.9% 1,000 ML IV SCH ×3 (04:53→20:00)
[2019-06-10] MEDS: METOPROLOL TARTRATE 50 MG TAB PO SCH ×2 (07:48→20:00)
[2019-06-10] MEDS: PANTOPRAZOLE 40 MG/10 ML VIAL IV SCH (07:51)
--- NOTE | 2019-06-10 10:58 | P.GSHP ---
History of Present Illness H&P Date: 06/10/19 This is a 44-year-old male who presented to emergency room with chief complaint of right upper quadrant pain in the emergency room several times before in the previous days. He states is worse after he eats pain. He was noted to have some gallstones and was supposed follow-up with a surgeon as an outpatient however his pain continued and stated he could not take it at home anymore and he could not wait. Patient has no significant past surgical history. He did have an EGD and colonoscopy 2 years ago the EGD did show a hiatal hernia with some esophagitis and gastritis. He has not been taking omeprazole. He states this pain is very different from the pain he is feeling at that time. He denies any blood in his stool he denies any bloody emesis. He has been having nausea. Past Medical History Past Medical History: Asthma, Chest Pain / Angina, Hypertension Additional Past Medical History / Comment(s): HAS BEEN HAVING EPISODES OF BLACK STOOL FOR PAST MONTH History of Any Multi-Drug Resistant Organisms: None Reported Past Surgical History: No Surgical Hx Reported Additional Past Surgical History / Comment(s): PAIN CLINIC PROCEDURE with injections, WISDOM TEETH Past Anesthesia/Blood Transfusion Reactions: No Reported Reaction Past Psychological History: No Psychological Hx Reported Smoking Status: Never smoker Past Alcohol Use History: Occasional Past Drug Use History: None Reported - Past Family History Father Family Medical History: Cancer Medications and Allergies Home Medications Medication Instructions Recorded Confirmed Type Albuterol Inhaler [Ventolin Hfa 2 puff INHALATION RT-Q6H PRN 07/11/17 06/09/19 H istory Inhaler] Multivitamins, Thera [Multivitamin 1 tab PO DAILY 07/11/17 06/09/19 History (formulary)] Metoprolol Tartrate [Lopressor] 50 mg PO BID 06/09/19 06/09/19 History Allergies Allergy/AdvReac Type Severity Reaction Status Date / Time No Known Allergies Allergy Verified 06/09/19 18:39 Surgical - Exam Osteopathic Statement: *. No significant issues noted on an osteopathic structural exam other than those noted in the History and Physical/Consult. Vital Signs Temp Pulse Resp BP Pulse Ox 98.5 F 65 18 125/86 98 06/09/19 18:00 06/09/19 18:00 06/09/19 18:00 06/09/19 18:00 06/09/19 18:00 - General well developed, well nourished, no distress - Eyes PERRL - Neck no masses, trachea midline - Respiratory normal expansion, normal respiratory effort - Cardiovascular Rhythm: regular - Abdomen mild tenderness palpation right upper quadrant no rebound rigidity or guarding Abdomen: soft - Neurologic normal coordination, normal sensation - Psychiatric oriented to time, oriented to person, oriented to place Results - Labs 06/09/19 18:30 06/09/19 18:30 Abnormal Lab Results - Last 24 Hours (Table) 06/09/19 Range/Units 18:30 Lymphocytes # 0.9 L (1.0-4.8) k/uL Diabetes panel 06/09/19 Range/Units 18:30 Sodium 141 (137-145) mmol/L Potassium 4.3 (3.5-5.1) mmol/L Chloride 106 (98-107) mmol/L Carbon Dioxide 26 (22-30) mmol/L BUN 12 (9-20) mg/dL Creatinine 0.76 (0.66-1.25) mg/dL Glucose 94 (74-99) mg/dL Calcium 9.0 (8.4-10.2) mg/dL AST 31 (17-59) U/L ALT 33 (21-72) U/L Alkaline Phosphatase 83 (38-126) U/L Total Protein 7.1 (6.3-8.2) g/dL Albumin 4.2 (3.5-5.0) g/dL Calcium panel 06/09/19 Range/Units 18:30 Calcium 9.0 (8.4-10.2) mg/dL Albumin 4.2 (3.5-5.0) g/dL Pituitary panel 06/09/19 Range/Units 18:30 Sodium 141 (137-145) mmol/L Potassium 4.3 (3.5-5.1) mmol/L Chloride 106 (98-107) mmol/L Carbon Dioxide 26 (22-30) mmol/L BUN 12 (9-20) mg/dL Creatinine 0.76 (0.66-1.25) mg/dL Glucose 94 (74-99) mg/dL Calcium 9.0 (8.4-10.2) mg/dL Adrenal panel 06/09/19 Range/Units 18:30 Sodium 141 (137-145) mmol/L Potassium 4.3 (3.5-5.1) mmol/L Chloride 106 (98-107) mmol/L Carbon Dioxide 26 (22-30) mmol/L BUN 12 (9-20) mg/dL Creatinine 0.76 (0.66-1.25) mg/dL Glucose 94 (74-99) mg/dL Calcium 9.0 (8.4-10.2) mg/dL Total Bilirubin 1.1 (0.2-1.3) mg/dL AST 31 (17-59) U/L ALT 33 (21-72) U/L Alkaline Phosphatase 83 (38-126) U/L Total Protein 7.1 (6.3-8.2) g/dL Albumin 4.2 (3.5-5.0) g/dL Assessment and Plan Assessment: cholecystitis Plan: discussed the risks benefits and alternatives to laparoscopic cholecystectomy possible open to the patient risks of bleeding infection damage surrounding tissue need further operation damage to common bile duct patient stated he understood agreed and consented informed consent was obtained.he remain nothing by mouth started on IV antibiotics and IV fluids. I also discussed with the patient that he does have a history of esophagitis and gastritis and recommended PPI. I discussed with him that his pain may persist after the surgery if this is in fact pain from his gastritis. He stated he understood and agreed however he did want to continue with the cholecystectomy.
[2019-06-10] MEDS ORDERED: LACTATED RINGERS 1,000 ML IV ONE ×2 (15:38→17:15)
[2019-06-10] MEDS: HEPARIN SODIUM,PORCINE 5,000 UNIT/ML 1 ML VIAL SQ SCH ×2 (15:40→23:23)
[2019-06-10] MEDS ORDERED: DEXAMETHASONE SOD PHOSPHATE 4 MG/ML 1 ML VIAL IVP ONE (15:40)
[2019-06-10] MEDS: ONDANSETRON 4 MG/2 ML VIAL IVP PRN (15:40)
[2019-06-10] MEDS ORDERED: fentaNYL (PF) 50 MCG/ML 2 ML AMP ONE (16:21)
[2019-06-10] MEDS ORDERED: SUCCINYLCHOLINE CHLORIDE 100 MG/5 ML SYR IV ONE (16:21)
[2019-06-10] MEDS ORDERED: ROCURONIUM BROMIDE 10 MG/ML 10 ML VIAL IV ONE (16:21)
[2019-06-10] MEDS ORDERED: GLYCOPYRROLATE 0.2 MG/ML 2 ML VIAL ONE (16:21)
[2019-06-10] MEDS ORDERED: PROPOFOL 10 MG/ML 20 ML VIAL IV ONE (16:21)
[2019-06-10] MEDS ORDERED: LIDOCAINE 1% INJ 10MG/ML (20 ML MDV) ONE (16:21)
[2019-06-10] MEDS ORDERED: BUPIVACAIN-EPI 0.25%-1:200,000 30 ML VIAL SQ ONE ×2 (16:21)
[2019-06-10] MEDS ORDERED: MIDAZOLAM 2 MG/2 ML VIAL ONE (16:21)
[2019-06-10] MEDS ORDERED: NEOSTIGMINE 1 MG/ML 10 ML VIAL ONE (16:21)
--- NOTE | 2019-06-10 17:39 | P.OP ---
Date of Procedure: 06/10/19 Preoperative Diagnosis: Cholecystitis Postoperative Diagnosis: Same Procedure(s) Performed: Laparoscopic Cholecystectomy Anesthesia: DARLINE Surgeon: Dev Flores Estimated Blood Loss (ml): 15 Condition: stable Disposition: PACU Description of Procedure: Patient is brought to the operative suite remained in the supine position underwent general endotracheal anesthesia per Department of anesthesia timeout was performed correct patient correct procedure correct site was verified. A 12 mm incision was made just to the right umbilicus and using a 12 mm Visiport the abdomen was entered under direct visualization and insufflated no abnormalities or injuries were noted. 2 5 mm ports placed the right upper quadrant one in the midepigastric all under direct visualization. The patient was placed in reverse Trendelenburg right side up and the fundus of the gallbladder is grasped and retracted cephalad. Lundy's pouch was identified and retracted inferiorly and anteriorly. The cystic duct and cystic artery were skeletonized the critical view of safety was obtained in the cystic duct was then duly clipped and ligated the cystic artery was then duly clipped and ligated. Gallbladder is then removed from the liver bed using Bovie electrocautery. There was a small amount of oozing from the liver bed this was controlled with a large cautery and Surgicel. Hemostasis was achieved the abdomen was irrigated and the gallbladder was removed through the periumbilical port site. The abdomen was once again inspected for hemostasis the periumbilical port site fascia was closed with 0 Vicryls and a interrupted fashion with the aid of a Geoff-Luís suture passer. All ports removed under direct visualization and the abdomen was desufflated hemostasis was noted . Skin was closed with 4-0 Monocryl sutures in an interrupted fashion skin glue was then applied patient tolerated the procedure well no apparent complications
[2019-06-11] MEDS: HYDROmorphone 1 MG/ML 1 ML SYRINGE IVP PRN ×4 (03:05→12:18)
[2019-06-11] MEDS: SODIUM CHLORIDE 0.9% 1,000 ML IV SCH ×2 (04:57→14:55)
[2019-06-11 06:16] VITALS: RESP 16
[2019-06-11] MEDS: PANTOPRAZOLE 40 MG/10 ML VIAL IV SCH (06:59)
[2019-06-11] MEDS: HEPARIN SODIUM,PORCINE 5,000 UNIT/ML 1 ML VIAL SQ SCH (06:59)
[2019-06-11] MEDS: AMPICILLIN-SULBACTAM 1.5 GM in SODIUM CHLORIDE 0.9% 50 ML IVPB SCH (06:59)
[2019-06-11] MEDS: METOPROLOL TARTRATE 50 MG TAB PO SCH (07:00)
[2019-06-11 08:11] LABS: Basophils % (A) 0 %; Eosinophils % (A) 0 %; HCT 43.6 % (39.0-53.0); Lymphocytes # (A) 0.4 k/uL (1.0-4.8); Lymphocytes % (A) 6 %; MCH 26.4 pg (25.0-35.0); MCHC 32.1 g/dL (31.0-37.0); MCV 82.3 fL (80.0-100.0); Mean Platelet Volume 6.6; Monocytes # (A) 0.3 k/uL (0-1.0); Monocytes % (A) 4 %; Neutrophils # (A) 6.4 k/uL (1.3-7.7); Neutrophils % (A) 89 %; Platelet Count 226 k/uL (150-450); RBC 5.29 m/uL (4.30-5.90); RDW 14.6 % (11.5-15.5); WBC 7.2 k/uL (3.8-10.6)
[2019-06-11 08:33] LABS: ALT 38 U/L (21-72); AST 34 U/L (17-59); African American GFR (CKD) >90 (>60 ml/min/1.73 sqM); Albumin 4.2 g/dL (3.5-5.0); Alkaline Phosphatase 81 U/L (38-126); Anion Gap 9 mmol/L; Blood Urea Nitrogen 12 mg/dL (9-20); Calcium 8.8 mg/dL (8.4-10.2); Carbon Dioxide 28 mmol/L (22-30); Chloride 104 mmol/L (98-107); Glucose 142 mg/dL (74-99); Potassium 4.8 mmol/L (3.5-5.1); Sodium 141 mmol/L (137-145); Total Protein 6.9 g/dL (6.3-8.2)
[2019-06-11 14:43] VITALS: BP 124/74; PULSE 80; TEMP 98
--- NOTE | 2019-06-11 15:11 | P.PN ---
Subjective Progress Note Date: 06/11/19 Pain well controlled, He states he is feeling much better. Tolerating diet Objective - Vital Signs Vital signs: Vital Signs Temp 98 F 06/11/19 14:42 Pulse 80 06/11/19 14:42 Resp 16 06/11/19 14:42 BP 124/74 06/11/19 14:42 Pulse Ox 96 06/11/19 14:42 Intake & Output 06/10/19 06/11/19 06/11/19 18:59 06:59 18:59 Intake Total 1450 600 Output Total 15 Balance 1435 600 Intake: IV 1450 Oral 0 600 Output: Estimated Blood Loss 15 Other: Voiding Method Toilet Bedside Commode # Voids 1 2 2 # Bowel Movements 0 - Constitutional General appearance: Present: cooperative - Respiratory Details: nonlabored - Cardiovascular Rhythm: regular - Gastrointestinal Gastrointestinal Comment(s): s/nt/nd incisions CDI - Psychiatric Psychiatric: Present: A&O x's 3 - Labs CBC & Chem 7: 06/11/19 07:49 06/11/19 07:49 Labs: Abnormal Lab Results - Last 24 Hours (Table) 06/11/19 06/11/19 Range/Units 07:49 07:49 Lymphocytes # 0.4 L (1.0-4.8) k/uL Creatinine 0.64 L (0.66-1.25) mg/dL Glucose 142 H (74-99) mg/dL Assessment and Plan Assessment: cholecystitis Plan: Patient is stable for DC home follow up in 2 weeks.
== END 2019-06-11 15:31 | disposition home or self-care (01) ==
LOC: EC 17:49 → 4MS4W 19:18
PROVIDERS: ADMIT Student in an Organized Health Care Education/Training Program; ATTEND Student in an Organized Health Care Education/Training Program
DX: K80.12 Calculus of gallbladder with acute and chronic cholecystitis without obstruction (principal); J45.909 Unspecified asthma, uncomplicated; I10 Essential (primary) hypertension; Z79.899 Other long term (current) drug therapy
CPT/HCPCS: 47562; 96372 ×2; 96374; 96375; 99285; 36415; 88304; 80053 ×2; 82150; 83690; 85025 ×2; 85610; 85730; 81003; 74018; G0378 ×3; J2250; J1644 ×2; J1100; J2710; J2765; J2405 ×2; J2001; J3010; J1885; J1170 ×3; J0295 ×3; J0330; J2704; C9113 ×3

== ENCOUNTER 2019-06-14 16:52 | Inpatient (IN) | payer BC ==
[2019-06-14] MEDS ORDERED: SODIUM CHLORIDE 0.9% 1,000 ML IV STA (18:12)
[2019-06-14] MEDS ORDERED: MORPHINE SULFATE 4 MG/ML SYRINGE IV STA (18:12)
[2019-06-14] MEDS ORDERED: ONDANSETRON 4 MG/2 ML VIAL IVP STA (18:12)
[2019-06-14 18:56] LABS: Basophils % (A) 0 %; Eosinophils # (A) 0.1 k/uL (0-0.7); Eosinophils % (A) 1 %; HCT 43.3 % (39.0-53.0); HGB 14.2 gm/dL (13.0-17.5); Lymphocytes # (A) 0.6 k/uL (1.0-4.8); Lymphocytes % (A) 7 %; MCHC 32.8 g/dL (31.0-37.0); MCV 82.2 fL (80.0-100.0); Monocytes # (A) 0.4 k/uL (0-1.0); Monocytes % (A) 5 %; Neutrophils # (A) 8.1 k/uL (1.3-7.7); Neutrophils % (A) 86 %; Platelet Count 222 k/uL (150-450); RBC 5.26 m/uL (4.30-5.90); RDW 14.8 % (11.5-15.5); WBC 9.4 k/uL (3.8-10.6)
[2019-06-14 19:02] LABS: ALT 26 U/L (21-72); AST 16 U/L (17-59); African American GFR (CKD) >90 (>60 ml/min/1.73 sqM); Albumin 3.9 g/dL (3.5-5.0); Alkaline Phosphatase 78 U/L (38-126); Anion Gap 6 mmol/L; Blood Urea Nitrogen 14 mg/dL (9-20); Carbon Dioxide 31 mmol/L (22-30); Chloride 104 mmol/L (98-107); Glucose 90 mg/dL (74-99); Potassium 3.7 mmol/L (3.5-5.1); Sodium 141 mmol/L (137-145); Total Bilirubin 1.3 mg/dL (0.2-1.3); Total Protein 6.7 g/dL (6.3-8.2)
[2019-06-14 19:04] LABS: INR 0.9 (<1.2); Partial Thromboplastin Time 25.6 sec (22.0-30.0); Prothrombin Time 10.2 sec (9.0-12.0)
--- NOTE | 2019-06-14 19:10 | CT ---
EXAMINATION TYPE: CT abdomen pelvis w con DATE OF EXAM: 06/14/2019 COMPARISON: 06/09/2019 HISTORY: abdominal pain and fever 4 days [address] op [address] DLP: 2024.7 mGycm Automated exposure control for dose reduction was used. TECHNIQUE: Helical acquisition of images was performed from the lung bases through the pelvis. CONTRAST: Performed without Oral Contrast and with IV Contrast, patient injected with 100 mL of Isovue 300. FINDINGS: Lung bases are clear. There is no pleural effusion. Heart size is normal. There are clips from cholecystectomy. Liver and spleen appear normal. Bile ducts are not dilated. The re is no evidence of pancreatic mass. Stomach appears normal. There is a complex area in fluid collec tion in the right upper quadrant at the leticia hepatis. This is lateral to the descending duodenum. Th is measures 3.6 cm in diameter. There is no adrenal mass. Kidneys show satisfactory contrast opacification. There is 5 mm calculus la teral left kidney. There are multiple small renal cortical cysts measuring less than 1 cm. There is n o hydronephrosis. There is some fat stranding right upper quadrant. There is no evidence of a bowel obstruction. Bladde r distends smoothly. There is no inguinal hernia. There is no free fluid in the pelvis. There is no m esenteric edema. The appendix appears normal. Lumbar spine is intact. Bony pelvis is intact. IMPRESSION: AT THE SITE OF CHOLECYSTECTOMY THERE IS A COMPLEX AIR AND FLUID COLLECTION. THERE IS CHOLECYSTECTOMY SINCE LAST EXAM. FINDINGS COULD RELATE TO ABSCESS. THERE IS ADJACENT FAT STRANDING AT THE HEPATIC FLE XURE OF THE COLON. NONOBSTRUCTING LEFT RENAL CALCULUS. SMALL RENAL CORTICAL CYSTS.
[2019-06-14] MEDS ORDERED: IBUPROFEN 600 MG TAB PO STA (19:15)
--- NOTE | 2019-06-14 19:24 | ED ---
Abdominal Pain HPI - General Chief Complaint: Abdominal Pain Stated Complaint: Abd Pain/Post SX Source: patient Mode of arrival: wheelchair Limitations: no limitations - History of Present Illness Initial Comments: The patient is a 44-year-old male who is status post cholecystectomy on Monday by Dr. méndez. States that since the procedure he's had some mild right upper quadrant discomfort. Today his pain became intractable. He began having significant nausea with lack of appetite. They called the office and he was instructed to come into the emergency department. The patient denies any reported fevers at home however he does have significant chills. He denies any vomiting. Denies any chest pain or shortness of breath. No ripping or tearing sensation to his back. He has had some constipation due to pain medication use. He did have a bowel movement this morning which was nonbloody. He denies any changes in his urination. There are no other alleviating, precipitating or modifying factors - Related Data Home Medications Medication Instructions Recorded Confirmed Albuterol Inhaler [Ventolin Hfa 2 puff INHALATION RT-Q6H PRN 07/11/17 06/14/19 Inhaler] Metoprolol Tartrate [Lopressor] 50 mg PO BID 06/09/19 06/14/19 Previous Rx's Medication Instructions Recorded HYDROcodone/APAP 5-325MG [[place] 1 tab PO Q4HR PRN 3 Days #18 tab 06/11/19 5-325] Allergies Allergy/AdvReac Type Severity Reaction Status Date / Time No Known Allergies Allergy Verified 06/14/19 17:58 Review of Systems ROS Statement: Those systems with pertinent positive or pertinent negative responses have been documented in the HPI. ROS Other: All systems not noted in ROS Statement are negative. Past Medical History Past Medical History: Asthma, Chest Pain / Angina, Hypertension Additional Past Medical History / Comment(s): HAS BEEN HAVING EPISODES OF BLACK STOOL FOR PAST MONTH History of Any Multi-Drug Resistant Organisms: None Reported Past Surgical History: Cholecystectomy Additional Past Surgical History / Comment(s): PAIN CLINIC PROCEDURE with injections, WISDOM TEETH Past Anesthesia/Blood Transfusion Reactions: No Reported Reaction Past Psychological History: No Psychological Hx Reported Smoking Status: Never smoker Past Alcohol Use History: Occasional Past Drug Use History: None Reported - Past Family History Father Family Medical History: Cancer General Exam Limitations: no limitations Course Vital Signs 06/14/19 06/14/19 06/14/19 16:58 19:07 20:02 Temperature 98.8 F 103 F H Pulse Rate 89 93 80 Respiratory 18 17 18 Rate Blood Pressure 135/83 137/80 133/91 O2 Sat by Pulse 99 100 98 Oximetry Medical Decision Making - Medical Decision Making Upon arrival the patient was placed into room 27. He is hooked up to continuous pulse ox and cardiac monitoring. A 12-lead EKG was performed on the patient. Peripheral IV was established. He was given 4 mg of morphine for his pain and 4 mg of Zofran for his nausea. Laboratory studies were conducted. I did send the patient for a CT of his abdomen and pelvis. Laboratory studies are unremarkable. The patient's CT is remarkable for a fluid collection in the gallbladder fossa. Because of these results I did call discuss the case with Dr. Putnam. She did recommend a stat HIDA scan. The patient is sent for this procedure. Upon return of the results I did discuss them with Dr. Putnam. She did recommend hospital admission. Blood cultures were obtained as the patient did spike a fever for 103. He was then initiated on Zosyn. The patient was reevaluated and had a recurrence of this pain. I did provide him with a second 4 mg dose of morphine. He then remained in stable condition was transported to the floor - Lab Data Result diagrams: 06/14/19 18:41 06/14/19 18:41 Lab Results 06/14/19 06/14/19 06/14/19 Range/Units 18:41 18:41 18:41 WBC 9.4 (3.8-10.6) k/uL RBC 5.26 (4.30-5.90) m/uL Hgb 14.2 (13.0-17.5) gm/dL Hct 43.3 (39.0-53.0) % MCV 82.2 (80.0-100.0) fL MCH 27.0 (25.0-35.0) pg MCHC 32.8 (31.0-37.0) g/dL RDW 14.8 (11.5-15.5) % Plt Count 222 (150-450) k/uL Neutrophils % 86 % Lymphocytes % 7 % Monocytes % 5 % Eosinophils % 1 % Basophils % 0 % Neutrophils # 8.1 H (1.3-7.7) k/uL Lymphocytes # 0.6 L (1.0-4.8) k/uL Monocytes # 0.4 (0-1.0) k/uL Eosinophils # 0.1 (0-0.7) k/uL Basophils # 0.0 (0-0.2) k/uL PT (9.0-12.0) sec INR (<1.2) APTT (22.0-30.0) sec Sodium 141 (137-145) mmol/L Potassium 3.7 (3.5-5.1) mmol/L Chloride 104 (98-107) mmol/L Carbon Dioxide 31 H (22-30) mmol/L Anion Gap 6 mmol/L BUN 14 (9-20) mg/dL Creatinine 0.76 (0.66-1.25) mg/dL Est GFR (CKD-EPI)AfAm >90 (>60 ml/min/1.73 sqM) Est GFR (CKD-EPI)NonAf >90 (>60 ml/min/1.73 sqM) Glucose 90 (74-99) mg/dL Plasma Lactic Acid Tien 1.0 (0.7-2.0) mmol/L Calcium 9.0 (8.4-10.2) mg/dL Total Bilirubin 1.3 (0.2-1.3) mg/dL AST 16 L (17-59) U/L ALT 26 (21-72) U/L Alkaline Phosphatase 78 (38-126) U/L Total Protein 6.7 (6.3-8.2) g/dL Albumin 3.9 (3.5-5.0) g/dL Lipase 49 (23-300) U/L Urine Color Urine Appearance (Clear) Urine pH (5.0-8.0) Ur Specific [place] (1.001-1.035) Urine Protein (Negative) Urine Glucose (UA) (Negative) Urine Ketones (Negative) Urine Blood (Negative) Urine Nitrite (Negative) Urine Bilirubin (Negative) Urine Urobilinogen (<2.0) mg/dL Ur Leukocyte Esterase (Negative) Urine RBC (0-5) /hpf Urine WBC (0-5) /hpf 06/14/19 06/14/19 Range/Units 18:41 22:36 WBC (3.8-10.6) k/uL RBC (4.30-5.90) m/uL Hgb (13.0-17.5) gm/dL Hct (39.0-53.0) % MCV (80.0-100.0) fL MCH (25.0-35.0) pg MCHC (31.0-37.0) g/dL RDW (11.5-15.5) % Plt Count (150-450) k/uL Neutrophils % % Lymphocytes % % Monocytes % % Eosinophils % % Basophils % % Neutrophils # (1.3-7.7) k/uL Lymphocytes # (1.0-4.8) k/uL Monocytes # (0-1.0) k/uL Eosinophils # (0-0.7) k/uL Basophils # (0-0.2) k/uL PT 10.2 (9.0-12.0) sec INR 0.9 (<1.2) APTT 25.6 (22.0-30.0) sec Sodium (137-145) mmol/L Potassium (3.5-5.1) mmol/L Chloride (98-107) mmol/L Carbon Dioxide (22-30) mmol/L Anion Gap mmol/L BUN (9-20) mg/dL Creatinine (0.66-1.25) mg/dL Est GFR (CKD-EPI)AfAm (>60 ml/min/1.73 sqM) Est GFR (CKD-EPI)NonAf (>60 ml/min/1.73 sqM) Glucose (74-99) mg/dL Plasma Lactic Acid Tien (0.7-2.0) mmol/L Calcium (8.4-10.2) mg/dL Total Bilirubin (0.2-1.3) mg/dL AST (17-59) U/L ALT (21-72) U/L Alkaline Phosphatase (38-126) U/L Total Protein (6.3-8.2) g/dL Albumin (3.5-5.0) g/dL Lipase (23-300) U/L Urine Color Yellow Urine Appearance Clear (Clear) Urine pH 6.5 (5.0-8.0) Ur Specific [place] >1.050 H (1.001-1.035) Urine Protein Trace H (Negative) Urine Glucose (UA) Negative (Negative) Urine Ketones Negative (Negative) Urine Blood Trace H (Negative) Urine Nitrite Negative (Negative) Urine Bilirubin Negative (Negative) Urine Urobilinogen <2.0 (<2.0) mg/dL Ur Leukocyte Esterase Negative (Negative) Urine RBC 3 (0-5) /hpf Urine WBC <1 (0-5) /hpf - EKG Data EKG Comments: EKG demonstrates a normal sinus rhythm with a ventricular rate of 92. WV interval 140. QRS 12. QTC 435. There is significant baseline artifact. There are no acute ST segment or lesions depressions concerning for ischemic changes. Disposition Clinical Impression: Abdominal pain, S/P cholecystectomy, Abscess after procedure Disposition: ADMITTED IP TO THIS [facility] Condition: Serious Is patient prescribed a controlled substance at d/c from ED?: No Referrals: Edel Cox MD [Primary Care Provider] - 1-2 days Decision to Admit Reason: Admit from EC Decision Date: 06/14/19 Decision Time: 23:08
[2019-06-14] MEDS ORDERED: MORPHINE SULFATE 4 MG/ML SYRINGE IVP STA ×2 (20:26→23:06)
[2019-06-14] MEDS: PIPERACILLIN-TAZOBACTAM 3.375 GM in SODIUM CHLORIDE 0.9% 100 ML IVPB SCH (20:42)
--- NOTE | 2019-06-14 22:39 | NM ---
History: ITS.REASON NM Reason: rule out bile leak Exam: NM HIDA SCAN 5.43 mCi of mebrofenin Comparison: FINDINGS: Hepatocyte function appears within limits. The biliary tree is seen by 4 minutes. No evidence of common bile duct obstruction with activity seen in the duodenum and proximal jejunum by 10 minutes. No evidence of bile leak identified. No evidence of duodenal gastric reflux seen. IMPRESSION: No evidence of bile leak identified.
[2019-06-14 22:58] LABS: Appearance,Urine Clear (Clear); Bilirubin,Urine Negative (Negative); Blood,Urine Trace (Negative); Color,Urine Yellow; Glucose,Urine (UA) Negative (Negative); Ketones,Urine Negative (Negative); Leukocyte Esterase,Urine Negative (Negative); Nitrite,Urine Negative (Negative); PH, Urine 6.5 (5.0-8.0); Protein,Urine Trace (Negative); RBC,Urine 3 /hpf (0-5); Urobilinogen,Urine <2.0 mg/dL (<2.0); WBC,Urine <1 /hpf (0-5)
[2019-06-14 23:04] LABS: Specific Gravity,Urine >1.050 (1.001-1.035)
[2019-06-14] MEDS ORDERED: IBUPROFEN 400 MG TAB PO PRN (23:09)
[2019-06-14] MEDS ORDERED: ONDANSETRON 4 MG/2 ML VIAL IVP PRN (23:09)
[2019-06-14] MEDS ORDERED: ACETAMINOPHEN TAB 325 MG TAB PO PRN (23:09)
[2019-06-14] MEDS ORDERED: NALOXONE 0.4 MG/ML 1 ML VIAL IV PRN (23:09)
[2019-06-15] MEDS ORDERED: ALBUTEROL NEBULIZED 2.5 MG/3 ML INHALATION PRN (02:00)
[2019-06-15] MEDS: MORPHINE SULFATE 4 MG/ML SYRINGE IV PRN ×2 (03:14→07:05)
[2019-06-15] MEDS: SODIUM CHLORIDE 0.9% 1,000 ML IV SCH ×2 (03:26→11:48)
[2019-06-15] MEDS: PIPERACILLIN-TAZOBACTAM 3.375 GM in SODIUM CHLORIDE 0.9% 100 ML IVPB SCH ×3 (05:18→20:11)
[2019-06-15] MEDS: METOPROLOL TARTRATE 50 MG TAB PO SCH ×2 (07:04→20:10)
[2019-06-15 07:09] LABS: Glucose,Whole Blood 105 mg/dL (75-99)
[2019-06-15] MEDS: KETOROLAC 30 MG/ML 1 ML VIAL IVP SCH ×3 (08:45→17:22)
[2019-06-15 09:35] LABS: Basophils % (A) 0 %; Eosinophils # (A) 0.1 k/uL (0-0.7); Eosinophils % (A) 1 %; HCT 40.9 % (39.0-53.0); HGB 13.2 gm/dL (13.0-17.5); Lymphocytes # (A) 0.7 k/uL (1.0-4.8); Lymphocytes % (A) 8 %; MCH 26.7 pg (25.0-35.0); MCHC 32.4 g/dL (31.0-37.0); MCV 82.5 fL (80.0-100.0); Mean Platelet Volume 7.2; Monocytes # (A) 0.4 k/uL (0-1.0); Monocytes % (A) 5 %; Neutrophils # (A) 7.6 k/uL (1.3-7.7); Neutrophils % (A) 85 %; Platelet Count 219 k/uL (150-450); RBC 4.96 m/uL (4.30-5.90); RDW 15.3 % (11.5-15.5)
--- NOTE | 2019-06-15 09:36 | P.GSHP ---
History of Present Illness H&P Date: 06/15/19 Chief Complaint: Abdomial pain The patient is a 44 year old man who underwent a laparoscopic cholecystectomy on Monday. Mid week he started to have RUQ pain that progressed. By Monday it was severe so after talking to his I sent him to the emergency department. Workup there was negative for bile leak. There was a fluid collection with air in the gallbladder fossa consistent with an abscess. - Review of Systems All systems: negative (Severe pain not responsive to medical therapy) Past Medical History Past Medical History: Asthma, Chest Pain / Angina, Hypertension Additional Past Medical History / Comment(s): previous black stools noted History of Any Multi-Drug Resistant Organisms: None Reported Past Surgical History: Cholecystectomy Additional Past Surgical History / Comment(s): PAIN CLINIC PROCEDURE with injections, WISDOM TEETH Past Anesthesia/Blood Transfusion Reactions: No Reported Reaction Past Psychological History: No Psychological Hx Reported Smoking Status: Never smoker Past Alcohol Use History: Occasional Past Drug Use History: None Reported - Past Family History Father Family Medical History: Cancer Medications and Allergies Home Medications Medication Instructions Recorded Confirmed Type Albuterol Inhaler [Ventolin Hfa 2 puff INHALATION RT-Q6H PRN 07/11/17 06/14/19 History Inhaler] Metoprolol Tartrate [Lopressor] 50 mg PO BID 06/09/19 06/14/19 History HYDROcodone/APAP 5-325MG [[place] 1 tab PO Q4HR PRN 3 Days #18 tab 06/11/19 06/14/19 Rx 5-325] Allergies Allergy/AdvReac Type Severity Reaction Status Date / Time No Known Allergies Allergy Verified 06/14/19 17:58 Surgical - Exam Osteopathic Statement: *. No significant issues noted on an osteopathic structural exam other than those noted in the History and Physical/Consult. Vital Signs Temp Pulse Resp BP Pulse Ox 98.8 F 89 18 135/83 99 06/14/19 16:58 06/14/19 16:58 06/14/19 16:58 06/14/19 16:58 06/14/19 16:58 - General well developed, well nourished, moderate distress - Eyes normal ocular movement - ENT normal mucosa - Neck trachea midline - Respiratory normal respiratory effort, clear to auscultation - Cardiovascular Rhythm: regular - Abdomen Abdomen: soft, tender (Right upper quadrant), surgical scars (Incisions healing without cellulitis or significant hematoma), guarding (Voluntary) Results - Labs 06/14/19 18:41 06/14/19 18:41 Abnormal Lab Results - Last 24 Hours (Table) 06/14/19 06/14/19 06/14/19 Range/Units 18:41 18:41 22:36 Neutrophils # 8.1 H (1.3-7.7) k/uL Lymphocytes # 0.6 L (1.0-4.8) k/uL Carbon Dioxide 31 H (22-30) mmol/L POC Glucose (mg/dL) (75-99) mg/dL AST 16 L (17-59) U/L Ur Specific [place] >1.050 H (1.001-1.035) Urine Protein Trace H (Negative) Urine Blood Trace H (Negative) 06/15/19 Range/Units 06:52 Neutrophils # (1.3-7.7) k/uL Lymphocytes # (1.0-4.8) k/uL Carbon Dioxide (22-30) mmol/L POC Glucose (mg/dL) 105 H (75-99) mg/dL AST (17-59) U/L Ur Specific [place] (1.001-1.035) Urine Protein (Negative) Urine Blood (Negative) Diabetes panel 06/14/19 Range/Units 18:41 Sodium 141 (137-145) mmol/L Potassium 3.7 (3.5-5.1) mmol/L Chloride 104 (98-107) mmol/L Carbon Dioxide 31 H (22-30) mmol/L BUN 14 (9-20) mg/dL Creatinine 0.76 (0.66-1.25) mg/dL Glucose 90 (74-99) mg/dL Calcium 9.0 (8.4-10.2) mg/dL AST 16 L (17-59) U/L ALT 26 (21-72) U/L Alkaline Phosphatase 78 (38-126) U/L Total Protein 6.7 (6.3-8.2) g/dL Albumin 3.9 (3.5-5.0) g/dL Calcium panel 06/14/19 Range/Units 18:41 Calcium 9.0 (8.4-10.2) mg/dL Albumin 3.9 (3.5-5.0) g/dL Pituitary panel 06/14/19 Range/Units 18:41 Sodium 141 (137-145) mmol/L Potassium 3.7 (3.5-5.1) mmol/L Chloride 104 (98-107) mmol/L Carbon Dioxide 31 H (22-30) mmol/L BUN 14 (9-20) mg/dL Creatinine 0.76 (0.66-1.25) mg/dL Glucose 90 (74-99) mg/dL Calcium 9.0 (8.4-10.2) mg/dL Adrenal panel 06/14/19 Range/Units 18:41 Sodium 141 (137-145) mmol/L Potassium 3.7 (3.5-5.1) mmol/L Chloride 104 (98-107) mmol/L Carbon Dioxide 31 H (22-30) mmol/L BUN 14 (9-20) mg/dL Creatinine 0.76 (0.66-1.25) mg/dL Glucose 90 (74-99) mg/dL Calcium 9.0 (8.4-10.2) mg/dL Total Bilirubin 1.3 (0.2-1.3) mg/dL AST 16 L (17-59) U/L ALT 26 (21-72) U/L Alkaline Phosphatase 78 (38-126) U/L Total Protein 6.7 (6.3-8.2) g/dL Albumin 3.9 (3.5-5.0) g/dL - Imaging CT scan - abdomen: report reviewed, image reviewed Assessment and Plan (1) Fever Current Visit: Yes Status: Acute Code(s): R50.9 - FEVER, UNSPECIFIED SNOMED Code(s): 504597056 (2) Abdominal pain Current Visit: Yes Status: Acute Code(s): R10.9 - UNSPECIFIED ABDOMINAL PAIN SNOMED Code(s): 22782621 (3) Abscess after procedure Current Visit: Yes Status: Acute Code(s): T81.49XA - INFECTION FOLLOWING A PROCEDURE, OTHER SURGICAL SITE, INIT SNOMED Code(s): 09245365098413000 Plan: The fluid collection is not amenable to percutaneous drainage. He'll therefore go to the OR for drainage. We'll attempt this laparoscopically but may require conversion to an open procedure. The procedures and complications were discussed. Keep him on broad-spectrum IV antibiotics pending the cultures. Further recommendations to follow.
[2019-06-15] MEDS ORDERED: SODIUM CHLORIDE 0.9% 1,000 ML IV ONE (09:45)
[2019-06-15] MEDS ORDERED: DEXAMETHASONE SOD PHOS (MDV) 100 MG/10 ML VIAL ONE (09:45)
[2019-06-15] MEDS ORDERED: GLYCOPYRROLATE 0.2 MG/ML 2 ML VIAL ONE (09:45)
[2019-06-15] MEDS ORDERED: LIDOCAINE 1% INJ 10MG/ML (20 ML MDV) ONE (09:45)
[2019-06-15] MEDS ORDERED: MIDAZOLAM 2 MG/2 ML VIAL ONE (09:45)
[2019-06-15] MEDS ORDERED: PROPOFOL 10 MG/ML 20 ML VIAL IV ONE (09:45)
[2019-06-15] MEDS ORDERED: ROCURONIUM BROMIDE 10 MG/ML 10 ML VIAL IV ONE (09:45)
[2019-06-15] MEDS ORDERED: NEOSTIGMINE 1 MG/ML 10 ML VIAL ONE (09:45)
[2019-06-15] MEDS ORDERED: fentaNYL (PF) 50 MCG/ML 2 ML AMP ONE (09:45)
[2019-06-15] MEDS ORDERED: BUPIVACAIN-EPI 0.25%-1:200,000 30 ML VIAL SQ ONE (09:45)
[2019-06-15] MEDS ORDERED: ONDANSETRON 4 MG/2 ML VIAL ONE (09:45)
[2019-06-15 09:47] LABS: ALT 25 U/L (21-72); AST 14 U/L (17-59); African American GFR (CKD) >90 (>60 ml/min/1.73 sqM); Albumin 3.7 g/dL (3.5-5.0); Alkaline Phosphatase 78 U/L (38-126); Anion Gap 11 mmol/L; Blood Urea Nitrogen 12 mg/dL (9-20); Calcium 8.4 mg/dL (8.4-10.2); Carbon Dioxide 28 mmol/L (22-30); Chloride 103 mmol/L (98-107); Glucose 98 mg/dL (74-99); Potassium 3.6 mmol/L (3.5-5.1); Sodium 142 mmol/L (137-145); Total Bilirubin 2.4 mg/dL (0.2-1.3); Total Protein 6.5 g/dL (6.3-8.2)
[2019-06-15] MEDS ORDERED: HYDROcodone/APAP 5-325MG 1 EACH TAB PO PRN (10:46)
--- NOTE | 2019-06-15 10:46 | P.OP ---
Date of Procedure: 06/15/19 Preoperative Diagnosis: Intra-abdominal abscess Postoperative Diagnosis: Intra-abdominal abscess Procedure(s) Performed: Laparoscopy with drainage of abscess and placement of EDDIE drain Anesthesia: ADRLINE Surgeon: Kelle Putnam Estimated Blood Loss (ml): 10 Pathology: other (Culture) Condition: stable Disposition: PACU Indications for Procedure: The patient is status post laparoscopic cholecystectomy. He presented with abdominal pain. Workup showed a abscess in the gallbladder fossa. Description of Procedure: The patient's taken to the operative suite where he is prepped and draped in the usual sterile manner under a general endotracheal anesthetic. The scar around the existing. Umbilical incision is excised. The fatty tissues bluntly dissected. The suture in the fascia was grasped and removed. The fascia and peritoneal layers were examined with the gloved finger. No significant adhesions underneath. A balloon trocar was inserted and pneumoperitoneum was established with CO2 gas. There is a small amount of phlegmon in the right upper quadrant and around the surfaces of the liver. The old scars were removed and accessory trochars are placed through previous incision sites. The liver is gently lifted and some phlegmon and abscess fluid is encountered. This is fairly localized. I aspirated about 10 mL's of purulent fluid and this was sent for culture. The subhepatic space and right upper quadrant were then irrigated and aspirated. The subhepatic space was examined. The cystic duct clips could be seen. There is little phlegmon. No obvious bile leak. No injury to the bowel. A 10 mm flat drain was placed into the subhepatic space and brought out through one of the trocar sites. The pneumoperitoneum was then released. The trochars are removed. The fashion at the umbilicus was closed with 0 Vicryl. The skin was closed with mildred. The drain was secured in place with 3-0 nylon. Sterile dressings were applied. He tolerated the procedure without difficulty and was taken to recovery room in satisfactory condition. According to or personnel, ARE correct.
[2019-06-15 12:14] LABS: Glucose,Whole Blood 121 mg/dL (75-99)
[2019-06-15] MEDS: FAMOTIDINE 20 MG TAB PO SCH ×2 (12:25→20:11)
[2019-06-15] MEDS: D5-0.45% NACL WITH KCL 20MEQ/L 1,000 ML IV SCH (12:54)
[2019-06-15] MEDS: HYDROcodone/APAP 5-325MG 1 EACH TAB PO PRN ×2 (14:50→20:09)
[2019-06-15 17:31] LABS: Glucose,Whole Blood 146 mg/dL (75-99)
[2019-06-15 20:34] LABS: Glucose,Whole Blood 167 mg/dL (75-99)
[2019-06-15] MEDS: HYDROmorphone 1 MG/ML 1 ML SYRINGE IVP PRN (23:42)
[2019-06-16] MEDS: KETOROLAC 30 MG/ML 1 ML VIAL IVP SCH ×4 (01:17→17:51)
[2019-06-16] MEDS: HYDROmorphone 1 MG/ML 1 ML SYRINGE IVP PRN (04:17)
[2019-06-16] MEDS: D5-0.45% NACL WITH KCL 20MEQ/L 1,000 ML IV SCH (04:20)
[2019-06-16] MEDS: PIPERACILLIN-TAZOBACTAM 3.375 GM in SODIUM CHLORIDE 0.9% 100 ML IVPB SCH ×3 (04:20→22:26)
[2019-06-16 07:22] LABS: Glucose,Whole Blood 140 mg/dL (75-99)
[2019-06-16] MEDS: FAMOTIDINE 20 MG TAB PO SCH (07:29)
[2019-06-16] MEDS: METOPROLOL TARTRATE 50 MG TAB PO SCH ×2 (07:29→22:26)
[2019-06-16 08:39] LABS: Basophils % (A) 0 %; Eosinophils % (A) 0 %; HCT 38.5 % (39.0-53.0); HGB 12.2 gm/dL (13.0-17.5); Lymphocytes # (A) 0.5 k/uL (1.0-4.8); Lymphocytes % (A) 4 %; MCH 26.5 pg (25.0-35.0); MCHC 31.8 g/dL (31.0-37.0); MCV 83.5 fL (80.0-100.0); Monocytes # (A) 0.4 k/uL (0-1.0); Monocytes % (A) 4 %; Neutrophils # (A) 10.5 k/uL (1.3-7.7); Neutrophils % (A) 90 %; Platelet Count 241 k/uL (150-450); RBC 4.61 m/uL (4.30-5.90); RDW 14.7 % (11.5-15.5); WBC 11.6 k/uL (3.8-10.6)
[2019-06-16 08:59] LABS: ALT 28 U/L (21-72); AST 15 U/L (17-59); African American GFR (CKD) >90 (>60 ml/min/1.73 sqM); Albumin 3.7 g/dL (3.5-5.0); Alkaline Phosphatase 86 U/L (38-126); Anion Gap 8 mmol/L; Blood Urea Nitrogen 18 mg/dL (9-20); Calcium 8.9 mg/dL (8.4-10.2); Carbon Dioxide 30 mmol/L (22-30); Chloride 104 mmol/L (98-107); Glucose 132 mg/dL (74-99); Potassium 4.8 mmol/L (3.5-5.1); Sodium 142 mmol/L (137-145); Total Bilirubin 1.1 mg/dL (0.2-1.3); Total Protein 6.6 g/dL (6.3-8.2)
--- NOTE | 2019-06-16 11:09 | P.PN ---
Subjective Progress Note Date: 06/16/19 Principal diagnosis: Intra-abdominal abscess The patient is postoperative day 1 drainage of intra-abdominal abscess. He feels much better. No nausea or vomiting. He is hungry. The fever has resolved. Objective - Vital Signs Vital signs: Vital Signs Temp 97.5 F L 06/16/19 05:00 Pulse 53 L 06/16/19 05:00 Resp 18 06/16/19 08:00 BP 114/75 06/16/19 05:00 Pulse Ox 96 06/16/19 05:00 Intake & Output 06/15/19 06/16/19 06/16/19 18:59 06:59 18:59 Intake Total 500 900 Output Total 75 10 Balance 425 890 Intake: IV 500 Oral 900 Output: Gastric Drainage 70 Drainage 10 Right Abdomen 10 Stool 0 Estimated Blood Loss 5 Other: Voiding Method Toilet # Voids 1 1 - Constitutional General appearance: Present: cooperative, no acute distress - Gastrointestinal General gastrointestinal: Present: soft Localized gastrointestinal: surgical scar: diffuse (Dressings are intact clean and dry. EDDIE is cloudy) - Labs CBC & Chem 7: 06/16/19 07:41 06/16/19 07:41 Labs: Abnormal Lab Results - Last 24 Hours (Table) 06/15/19 06/15/19 06/15/19 Range/Units 12:12 17:18 20:14 WBC (3.8-10.6) k/uL Hgb (13.0-17.5) gm/dL Hct (39.0-53.0) % Neutrophils # (1.3-7.7) k/uL Lymphocytes # (1.0-4.8) k/uL Creatinine (0.66-1.25) mg/dL Glucose (74-99) mg/dL POC Glucose (mg/dL) 121 H 146 H 167 H (75-99) mg/dL AST (17-59) U/L 06/16/19 06/16/19 06/16/19 Range/Units 06:48 07:41 07:41 WBC 11.6 H (3.8-10.6) k/uL Hgb 12.2 L (13.0-17.5) gm/dL Hct 38.5 L (39.0-53.0) % Neutrophils # 10.5 H (1.3-7.7) k/uL Lymphocytes # 0.5 L (1.0-4.8) k/uL Creatinine 0.64 L (0.66-1.25) mg/dL Glucose 132 H (74-99) mg/dL POC Glucose (mg/dL) 140 H (75-99) mg/dL AST 15 L (17-59) U/L Microbiology - Last 24 Hours (Table) 06/15/19 10:24 Gram Stain - Preliminary Peritoneal Fluid Body Fluid Culture - Preliminary Gram Neg Bacilli 06/14/19 20:05 Blood Culture - Preliminary Blood No Growth after 24 hours 06/15/19 10:24 Anaerobic Culture - Preliminary Peritoneal Fluid Assessment and Plan (1) Fever Current Visit: Yes Status: Acute Code(s): R50.9 - FEVER, UNSPECIFIED SNOMED Code(s): 825746158 (2) Abdominal pain Current Visit: Yes Status: Acute Code(s): R10.9 - UNSPECIFIED ABDOMINAL PAIN SNOMED Code(s): 70672168 (3) Abscess after procedure Current Visit: Yes Status: Acute Code(s): T81.49XA - INFECTION FOLLOWING A PROCEDURE, OTHER SURGICAL SITE, INIT SNOMED Code(s): 67417904629883515 Plan: Continue IV antibiotics. Await results of the culture. Monitor EDDIE drain. Hep- Lock the IV as he is eating and drinking well.
[2019-06-16 11:55] LABS: Glucose,Whole Blood 115 mg/dL (75-99)
[2019-06-16 17:10] LABS: Glucose,Whole Blood 123 mg/dL (75-99)
[2019-06-16 20:59] LABS: Glucose,Whole Blood 94 mg/dL (75-99)
[2019-06-17] MEDS: KETOROLAC 30 MG/ML 1 ML VIAL IVP SCH ×3 (00:18→12:41)
[2019-06-17] MEDS: PIPERACILLIN-TAZOBACTAM 3.375 GM in SODIUM CHLORIDE 0.9% 100 ML IVPB SCH ×2 (05:20→12:46)
[2019-06-17 06:58] LABS: Glucose,Whole Blood 86 mg/dL (75-99)
[2019-06-17] MEDS: METOPROLOL TARTRATE 50 MG TAB PO SCH (09:47)
[2019-06-17 12:08] LABS: Glucose,Whole Blood 95 mg/dL (75-99)
[2019-06-17 12:49] VITALS: BP 121/76; PULSE 71; RESP 20; TEMP 98.1
--- NOTE | 2019-06-17 17:16 | P.PN ---
Subjective Progress Note Date: 06/17/19 Patient doing well today no fevers, no compalints. pain improved. Drain serosang Objective - Vital Signs Vital signs: Vital Signs Temp 98.1 F 06/17/19 12:37 Pulse 71 06/17/19 12:37 Resp 20 06/17/19 16:00 BP 121/76 06/17/19 12:37 Pulse Ox 99 06/17/19 12:37 Intake & Output 06/16/19 06/17/19 06/17/19 18:59 06:59 18:59 Intake Total 500 Output Total 0 35 Balance 500 -35 Intake: Oral 500 Output: Drainage 35 Right Abdomen 35 Stool 0 Other: Voiding Method Toilet Toilet # Voids 2 2 2 # Bowel Movements 1 - Constitutional General appearance: Present: cooperative - Respiratory Details: nonlabored - Cardiovascular Rhythm: regular - Gastrointestinal Gastrointestinal Comment(s): incisions CDI, EDDIE serosang. Abd s/nt/nd - Psychiatric Psychiatric: Present: A&O x's 3 - Labs CBC & Chem 7: 06/16/19 07:41 06/16/19 07:41 Labs: Microbiology - Last 24 Hours (Table) 06/15/19 10:24 Gram Stain - Final Peritoneal Fluid Body Fluid Culture - Final Klebsiella oxytoca 06/15/19 10:24 Anaerobic Culture - Preliminary Peritoneal Fluid 06/14/19 20:05 Blood Culture - Preliminary Blood No Growth after 48 hours Assessment and Plan Assessment: S/P laparscopic washout of abscess/phlegmon Plan: Patient may be discharged home today on cipro. Follow up in my clinic for EDDIE removal on Monday. He was agreeable with this plan
== END 2019-06-17 17:41 | disposition home or self-care (01) | DRG 863 ==
LOC: EC 16:52 → 4MS4W 23:09
PROVIDERS: ADMIT Surgery; ATTEND Surgery
PROC: 0W9G40Z Drainage of Peritoneal Cavity with Drainage Device, Percutaneous Endoscopic Approach (ICD-10-PCS; principal; 2019-06-15 09:30)
DX: T81.43XA Infection following a procedure, organ and space surgical site, initial encounter (principal); K68.11 Postprocedural retroperitoneal abscess; B96.89 Other specified bacterial agents as the cause of diseases classified elsewhere; I10 Essential (primary) hypertension; J45.909 Unspecified asthma, uncomplicated; Z79.899 Other long term (current) drug therapy; Z90.49 Acquired absence of other specified parts of digestive tract
CPT/HCPCS: 36415; 74177; 78226; 80053; 81001; 83605; 83690; 85025; 85610; 85730; 87040; 87070; 87075; 87077; 87186; 87205; 93005; 94640; 96361; 96365; 96366; 96375; 96376; 99285

== ENCOUNTER 2022-09-22 04:56 | Emergency (ER) | payer BC ==
[2022-09-22 05:13] VITALS: RESP 18; TEMP 98
[2022-09-22] MEDS ORDERED: TRIAMCINOLONE 0.1% CREAM 80 GM TUBE TOPICAL ONE (06:15)
[2022-09-22] MEDS ORDERED: DEXAMETHASONE SOD PHOSPHATE 10 MG/ML 1 ML VIAL IM STA (06:16)
--- NOTE | 2022-09-22 06:31 | ED ---
Skin/Abscess/FB HPI - General Chief complaint: Skin/Abscess/Foreign Body Stated complaint: spots on hands, swelling Time Seen by Provider: 09/22/22 05:56 Source: patient, RN notes reviewed Mode of arrival: ambulatory - History of Present Illness Initial comments: This is a 47-year-old male who presents to the emergency department for spots and swelling to his hands. States that the symptoms have been present for the last 2-3 days. Around the time they occurred, he was developing a sore throat and cough. He tested negative for COVID and influenza 2 days ago. The red spots have since persisted and are now present on both sides of his hands. States they are very painful and feel "leathery". Denies any history of eczema. He is having difficulty moving his fingers due to the pain and swelling. He would not describe the rash as itchy. Denies any rashes on his feet or mouth. Denies coming into contact with any children, individuals with similar symptoms, new chemicals or lotions, or starting new medications. Also denies any fevers or chills. Denies any fevers, chills, dyspnea, chest pain, palpitations, abdominal pain, nausea, vomiting, diarrhea, back pain, or headaches. MD complaint: rash Onset/Timin -: days(s) Location: L hand, R hand Associated symptoms: cough Treatments Prior to Arrival: none - Related Data Home Medications Medication Instructions Recorded Confirmed Albuterol Inhaler [Ventolin Hfa 2 puff INHALATION RT-Q6H PRN 07/11/17 06/14/19 Inhaler] Metoprolol Tartrate [Lopressor] 50 mg PO BID 06/09/19 06/14/19 Previous Rx's Medication Instructions Recorded HYDROcodone/APAP 5-325MG [[place] 1 tab PO Q4HR PRN 3 Days #18 tab 06/11/19 5-325] Ciprofloxacin HCl 500 mg PO BID 10 Days #20 tab 06/17/19 HYDROcodone/APAP 5-325MG [[place] 1 tab PO Q6HR PRN 3 Days #12 tab 09/22/22 5-325] predniSONE 50 mg PO DAILY 5 Days #5 tablet 09/22/22 Allergies Allergy/AdvReac Type Severity Reaction Status Date / Time No Known Allergies Allergy Verified 09/22/22 05:13 Review of Systems ROS Statement: Those systems with pertinent positive or pertinent negative responses have been documented in the HPI. ROS Other: All systems not noted in ROS Statement are negative. Past Medical History Past Medical History: Asthma, Chest Pain / Angina, Hypertension Additional Past Medical History / Comment(s): HAS BEEN HAVING EPISODES OF BLACK STOOL FOR PAST MONTH History of Any Multi-Drug Resistant Organisms: None Reported Past Surgical History: Cholecystectomy Additional Past Surgical History / Comment(s): PAIN CLINIC PROCEDURE with injections, WISDOM TEETH Past Anesthesia/Blood Transfusion Reactions: No Reported Reaction Past Psychological History: No Psychological Hx Reported Smoking Status: Never smoker Past Alcohol Use History: Occasional Past Drug Use History: None Reported - Past Family History Father Family Medical History: Cancer General Exam General appearance: alert, in no apparent distress Head exam: Present: atraumatic, normocephalic, normal inspection ENT exam: Present: other (There are no lesions in the oropharynx or on the lips.) Respiratory exam: Present: normal lung sounds bilaterally. Absent: respiratory distress, wheezes, rales, rhonchi, stridor Cardiovascular Exam: Present: regular rate, normal rhythm, normal heart sounds. Absent: systolic murmur, diastolic murmur, rubs, gallop, clicks Extremities exam: Present: other (Erythematous macular rash to the palmar and dorsal aspects of his bilateral hands with overlying tenderness. There is no blistering or vesicular formation. Swelling of all 5 digits and limited range of motion secondary to pain and stiffness. There are no lesions or swelling to the feet.) Neurological exam: Present: alert, oriented X3, CN II-XII intact Psychiatric exam: Present: normal affect, normal mood Course Vital Signs 09/22/22 09/22/22 05:08 09:23 Temperature 98 F Pulse Rate 88 84 Respiratory 18 18 Rate Blood Pressure 156/99 145/81 O2 Sat by Pulse 99 96 Oximetry Medical Decision Making - Medical Decision Making This is a 47-year-old male who presents to the emergency department for a painful rash to both hands. With the associated coughing and sore throat, this may be related to a viral exanthem or a secondary syphillis. There are no Jan[place]ay lesions, splinter hemorrhages, or evidence of Osler's nodes to suggest an endocarditis. He declines repeat influenza and Covid testing. There is no current involvement with the feet or mouth, nor is there any involvement on the trunk. Basic lab work obtained including inflammatory markers as well as syphillis, enterovirus and coxsackie testing. Advised that the syphilis, enterovirus, and coxsackie testing will not be available at the time of his discharge, and he will need to contact the hospital in the next couple of days for his results. Lab work reveals a mildly elevated CRP and was otherwise nonactionable. Triamcinolone and topical Benadryl creams were applied to the hands for discomfort, however he noted no significant improvement with the cream. He was also given IM Toradol with little to no relief. X-ray of the bilateral hands obtained due to the swelling in his digits and limited range of motion. My interpretation of this reveals no signs of fractures or arthritic changes. At this point, we do not have a clear cause for his symptoms. Patient requests trying a round of steroids, which he states has been helpful for various discomforts in the past. Advised that this may not be beneficial, however we can try a 5 day course. Rx for Prednisone provided. He was also given a prescription for a three-day course of [place] due to the fact that the anti-inflammatories and Tylenol have been ineffective, and is having difficulty sleeping due to the significant pain. Advise he take this very sparingly when his pain is the most severe and to avoid driving or operating machinery when taking this. He can continue trying to use the creams as needed. While he was in the exam room, he noted that the lesions started to become somewhat itchy. Advised [id number] Benadryl or an alternative antihistamine to treat the symptoms. He was given follow-up information for dermatology. Advised that he contact them in the next couple of days if symptoms do not improve. Return precautions reviewed in depth, the patient is instructed to return to the emergency department with any new, worsening, or concerning symptoms. Patient verbalized understanding. This case was discussed in detail with the attending ED physician. Presentation, findings, and treatment plan discussed in detail as well. - Lab Data Result diagrams: 09/22/22 07:02 09/22/22 07:02 Lab Results 09/22/22 09/22/22 Range/Units 07:02 07:02 WBC 3.6 L (3.8-10.6) k/uL RBC 5.42 (4.30-5.90) m/uL Hgb 15.6 (13.0-17.5) gm/dL Hct 46.2 (39.0-53.0) % MCV 85.1 (80.0-100.0) fL MCH 28.8 (25.0-35.0) pg MCHC 33.9 (31.0-37.0) g/dL RDW 13.7 (11.5-15.5) % Plt Count 187 (150-450) k/uL MPV 7.4 Neutrophils % 62 % Lymphocytes % 23 % Monocytes % 7 % Eosinophils % 5 % Basophils % 1 % Neutrophils # 2.2 (1.3-7.7) k/uL Lymphocytes # 0.8 L (1.0-4.8) k/uL Monocytes # 0.2 (0-1.0) k/uL Eosinophils # 0.2 (0-0.7) k/uL Basophils # 0.0 (0-0.2) k/uL ESR 13 (0-15) mm/hr Sodium 142 (137-145) mmol/L Potassium 4.0 (3.5-5.1) mmol/L Chloride 105 (98-107) mmol/L Carbon Dioxide 30 (22-30) mmol/L Anion Gap 7 mmol/L BUN 16 (9-20) mg/dL Creatinine 0.79 (0.66-1.25) mg/dL Est GFR (CKD-EPI)AfAm >90 (>60 ml/min/1.73 sqM) Est GFR (CKD-EPI)NonAf >90 (>60 ml/min/1.73 sqM) Glucose 109 H (74-99) mg/dL Calcium 9.0 (8.4-10.2) mg/dL Total Bilirubin 0.9 (0.2-1.3) mg/dL AST 30 (17-59) U/L ALT 38 (4-49) U/L Alkaline Phosphatase 75 (38-126) U/L C-Reactive Protein 2.6 H (<1.0) mg/dL Total Protein 7.2 (6.3-8.2) g/dL Albumin 4.6 (3.5-5.0) g/dL - Radiology Data Radiology results: report reviewed, image reviewed Disposition Clinical Impression: Rash of hand, Bilateral hand swelling Disposition: HOME SELF-CARE Instructions (If sedation given, give patient instructions): Acute Rash (ED) Additional Instructions: Return to the emergency department with any new, worsening, or concerning symptoms. Take the prednisone as prescribed for 5 days. Take the [place] very sparingly when your pain is the most severe and otherwise take Tylenol. You can continue applying the creams for additional relief and take [id number] Benadryl or another antihistamine to help with any itching. If you do not hear from the hospital in the next couple of days regarding your additional testing, please contact them for the results. Contact dermatology as listed below for a follow-up appointment and reevaluation of ongoing symptoms. Follow up with your primary care provider in 1-2 days. Prescriptions: HYDROcodone/APAP 5-325MG [[place] 5-325] 1 tab PO Q6HR PRN 3 Days #12 tab PRN Reason: Pain predniSONE 50 mg PO DAILY 5 Days #5 tablet Is patient prescribed a controlled substance at d/c from ED?: Yes When asked, does pt state using other controlled substances?: No If prescribed controlled substance>3 days was MAPS reviewed?: Prescribed <3 Days Referrals: Edel Cox MD [Primary Care Provider] - 1-2 days Félix Haq MD [STAFF PHYSICIAN] - 1-2 days
[2022-09-22] MEDS ORDERED: diphenhydrAMINE 2% CREAM 28.4 GM TUBE TOPICAL ONE (06:57)
[2022-09-22 07:10] LABS: Basophils % (A) 1 %; Eosinophils # (A) 0.2 k/uL (0-0.7); Eosinophils % (A) 5 %; HCT 46.2 % (39.0-53.0); HGB 15.6 gm/dL (13.0-17.5); Lymphocytes # (A) 0.8 k/uL (1.0-4.8); Lymphocytes % (A) 23 %; MCH 28.8 pg (25.0-35.0); MCHC 33.9 g/dL (31.0-37.0); MCV 85.1 fL (80.0-100.0); Mean Platelet Volume 7.4; Monocytes # (A) 0.2 k/uL (0-1.0); Monocytes % (A) 7 %; Neutrophils # (A) 2.2 k/uL (1.3-7.7); Neutrophils % (A) 62 %; Platelet Count 187 k/uL (150-450); RBC 5.42 m/uL (4.30-5.90); RDW 13.7 % (11.5-15.5); WBC 3.6 k/uL (3.8-10.6)
[2022-09-22 07:23] LABS: ALT 38 U/L (4-49); AST 30 U/L (17-59); African American GFR (CKD) >90 (>60 ml/min/1.73 sqM); Albumin 4.6 g/dL (3.5-5.0); Alkaline Phosphatase 75 U/L (38-126); Anion Gap 7 mmol/L; Blood Urea Nitrogen 16 mg/dL (9-20); Carbon Dioxide 30 mmol/L (22-30); Chloride 105 mmol/L (98-107); Glucose 109 mg/dL (74-99); Non-African American GFR(CKD) >90 (>60 ml/min/1.73 sqM); Sodium 142 mmol/L (137-145); Total Bilirubin 0.9 mg/dL (0.2-1.3); Total Protein 7.2 g/dL (6.3-8.2)
--- NOTE | 2022-09-22 07:33 | XR ---
EXAMINATION TYPE: XR hand complete bilateral DATE OF EXAM: 09/22/2022 COMPARISON: NONE HISTORY: 47-year-old male painful and swollen hands TECHNIQUE: 3 views each side FINDINGS: No marginal erosions or soft tissue calcifications. Possible old healed fracture deformity at the lev el of the right fifth metacarpal neck. Joint spaces are relatively maintained throughout. No retained radiopaque foreign body. No acute fracture, subluxation, or dislocation seen. No periostitis or oste olysis. IMPRESSION: No acute osseous abnormality seen on either side.
[2022-09-22] MEDS ORDERED: KETOROLAC 15 MG/ML 1 ML VIAL IM STA (07:36)
[2022-09-22 07:58] LABS: C Reactive Protein 2.6 mg/dL (<1.0)
[2022-09-22 09:24] VITALS: BP 145/81; PULSE 84
[2022-09-22 09:27] LABS: Erythrocyte Sedimentation Rate 13 mm/hr (0-15)
[2022-09-23 15:19] LABS: Enterovirus PCR DETECTED (Not detected); Enterovirus Source Dermal - Hand
== END 2022-09-22 09:23 | disposition home or self-care (01) ==
LOC: EC 04:56
DX: R21 Rash and other nonspecific skin eruption (principal); R22.33 Localized swelling, mass and lump, upper limb, bilateral; J45.909 Unspecified asthma, uncomplicated; I10 Essential (primary) hypertension; Z20.822 Contact with and (suspected) exposure to COVID-19; Z79.899 Other long term (current) drug therapy; Z90.49 Acquired absence of other specified parts of digestive tract
CPT/HCPCS: 36415; 87498; 80053; 85652; 85025; 86658; 86140; 86780; 73130; 99284; 96372; J1885

== ENCOUNTER 2022-11-01 05:50 | Emergency (ER) | payer BC ==
[2022-11-01 05:56] VITALS: TEMP 97.7
[2022-11-01] MEDS ORDERED: KETOROLAC 15 MG/ML 1 ML VIAL IM STA (07:38)
[2022-11-01] MEDS ORDERED: ORPHENADRINE 30 MG/ML 2 ML VIAL IM STA (07:38)
--- NOTE | 2022-11-01 07:43 | ED ---
Back Pain HPI - General Chief Complaint: Back Pain/Injury Stated Complaint: back pain Time Seen by Provider: 11/01/22 07:31 Source: patient, RN notes reviewed, old records reviewed Limitations: no limitations - History of Present Illness Initial Comments: 47-year-old male presents to the emergency room with complaints of low back pain for the past 2 days. Pain consistent with previous episodes of back pain. Denies any injury. Denies any fevers, nausea vomiting or diarrhea. He tried topical pain relievers and Excedrin a couple of days ago with no relief. MD Complaint: back pain -: days(s) (2) Similar Symptoms Previously: Yes Quality: sharp, other (Shooting down leg) Consistency: intermittent Improves With: movement Associated Symptoms: denies other symptoms Treatments Prior to Arrival: other (Topical pain reliever patch) - Related Data Home Medications Medication Instructions Recorded Confirmed Albuterol Inhaler [Ventolin Hfa 2 puff INHALATION RT-Q6H PRN 07/11/17 06/14/19 Inhaler] Metoprolol Tartrate [Lopressor] 50 mg PO BID 06/09/19 06/14/19 Previous Rx's Medication Instructions Recorded HYDROcodone/APAP 5-325MG [[place] 1 tab PO Q4HR PRN 3 Days #18 tab 06/11/19 5-325] Ciprofloxacin HCl 500 mg PO BID 10 Days #20 tab 06/17/19 HYDROcodone/APAP 5-325MG [[place] 1 tab PO Q6HR PRN 3 Days #12 tab 09/22/22 5-325] predniSONE 50 mg PO DAILY 5 Days #5 tablet 09/22/22 Cyclobenzaprine [Flexeril] 10 mg PO TID PRN #15 tab 11/01/22 Allergies Allergy/AdvReac Type Severity Reaction Status Date / Time No Known Allergies Allergy Verified 11/01/22 05:53 Review of Systems ROS Statement: Those systems with pertinent positive or pertinent negative responses have been documented in the HPI. ROS Other: All systems not noted in ROS Statement are negative. Past Medical History Past Medical History: Asthma, Chest Pain / Angina, Hypertension Additional Past Medical History / Comment(s): HAS BEEN HAVING EPISODES OF BLACK STOOL FOR PAST MONTH History of Any Multi-Drug Resistant Organisms: None Reported Past Surgical History: Cholecystectomy Additional Past Surgical History / Comment(s): PAIN CLINIC PROCEDURE with injections, WISDOM TEETH Past Anesthesia/Blood Transfusion Reactions: No Reported Reaction Past Psychological History: No Psychological Hx Reported Smoking Status: Never smoker Past Alcohol Use History: Occasional Past Drug Use History: None Reported - Past Family History Father Family Medical History: Cancer General Exam Limitations: no limitations General appearance: alert, in no apparent distress Head exam: Present: atraumatic Eye exam: Absent: scleral icterus, conjunctival injection Respiratory exam: Absent: respiratory distress, accessory muscle use Cardiovascular Exam: Present: regular rate Back exam: Present: paraspinal tenderness (Right lumbar), vertebral tenderness (Lumbar). Absent: CVA tenderness (R), CVA tenderness (L), muscle spasm, rash noted Expanded Back exam: Present: other (right leg pain proximal to knee ). Absent: saddle anesthesia Back exam: Negative Straight Leg Raising: Left, Right Neurological exam: Present: alert, oriented X3 Psychiatric exam: Present: normal affect, normal mood Skin exam: Present: warm, dry, normal color. Absent: cyanosis, diaphoretic, petechiae, pallor Course Vital Signs 11/01/22 11/01/22 05:53 09:16 Temperature 97.7 F Pulse Rate 83 81 Respiratory 16 15 Rate Blood Pressure 123/82 130/94 O2 Sat by Pulse 98 99 Oximetry Medical Decision Making - Medical Decision Making Patient presents with 2 days of right lower back pain radiating down his leg. History of sciatica. States no trauma. Denies any fevers, no bowel or bladder incontinence. Pain is worsened with movement and more comfortable supine. He was given Toradol and Norflex for pain. He was offered Lidoderm patches and declined stating they do not work. He was directed to refer to his primary care doctor for continuation of care. Case discussed with Dr. Sainz. Was pt. sent in by a medical professional or institution? @ -No Did you speak to anyone other than the patient for history? @ -No Did you review nursing and triage notes? @ -Yes I agree Were old charts reviewed? @ -No Differential Diagnosis? @ -Differential Back Pain: Strain, zoster, cauda equina syndrome, epidural abscess, vertebral osteomyelitis, discitis, fracture, subluxation, disc herniation, DJD, spinal stenosis, dissection, AAA, pancreatitis, peptic ulcer disease, pyelonephritis, kidney stone, this is not meant to be an all-inclusive list. What testing was considered but not performed? (CT, X-rays, U/S, labs)? Why? @ xr considered however no trauma and pain consistent with previous sciatica What meds were considered but not given? Why? @ no Did you discuss the management of the patient with other professionals? @ -no Did you reconcile home meds? @ -no Was smoking cessation discussed for >3mins.? @ no Was critical care preformed (if so, how long)? @ -no Were there social determinants of health that impacted care today? How? (Homelessness, low income, unemployed, alcoholism, drug addiction, transportation, low edu. Level, literacy, decrease access to med. care, nursing home, rehab)? @ -no Was there de-escalation of care discussed even if they declined? (Discuss DNR or withdrawal of care, Hospice)? @ no What co-morbidities impacted this encounter? (DM, HTN, Smoking, COPD, CAD, Cancer, CVA, Hep., AIDS, mental health diagnosis, sleep apnea, morbid obesity)? @ no Was patient admitted / discharged? @ discharged Undiagnosed new problem with uncertain prognosis? @ -[none] Drug Therapy requiring intensive monitoring for toxicity (Heparin, Nitro, Insulin, Cardizem)? @ no Were any procedures done? @ no Diagnosis/symptom? @ -[default] Acute, or Chronic, or Acute on Chronic? @ Acute on chronic Uncomplicated (without systemic symptoms) or Complicated (systemic symptoms)? @ -[default] Side effects of treatment? @ -[none] Exacerbation, Progression, or Severe Exacerbation] @ Exacerbation Poses a threat to life or bodily function? @ -[no] Disposition Clinical Impression: Sciatica, Lumbar back pain Disposition: HOME SELF-CARE Condition: Good Instructions (If sedation given, give patient instructions): Acute Low Back Pain (ED) Additional Instructions: Tylenol and Motrin as needed for pain. Use the muscle relaxer Flexeril as prescribed. Do not drink alcohol or operate heavy machinery when taking this medication. You can also use topical pain relievers like icy hot or capsaicin cream. Follow-up with the primary care doctor this week. Prescriptions: Cyclobenzaprine [Flexeril] 10 mg PO TID PRN #15 tab PRN Reason: Muscle Spasm Is patient prescribed a controlled substance at d/c from ED?: No Referrals: Edel Cox MD [Primary Care Provider] - 1-2 days Time of Disposition: 08:20
[2022-11-01 09:17] VITALS: BP 130/94; PULSE 81; RESP 15
== END 2022-11-01 09:18 | disposition home or self-care (01) ==
LOC: EC 05:50
DX: M54.41 Lumbago with sciatica, right side (principal); J45.909 Unspecified asthma, uncomplicated; I10 Essential (primary) hypertension; Z79.899 Other long term (current) drug therapy
CPT/HCPCS: 99283; 96372 ×2; J2360; J1885

== ENCOUNTER 2023-01-14 03:11 | Emergency (ER) | payer BC ==
[2023-01-14 03:20] VITALS: TEMP 97.7
[2023-01-14] MEDS ORDERED: DEXAMETHASONE SOD PHOSPHATE 4 MG/ML 1 ML VIAL IM STA (03:41)
--- NOTE | 2023-01-14 04:19 | XR ---
EXAMINATION TYPE: XR chest 2V DATE OF EXAM: 01/14/2023 COMPARISON: NONE HISTORY: Cough TECHNIQUE: 2 view FINDINGS: Heart and mediastinum are normal. Lungs are clear. Diaphragm is normal. Bony thorax appears normal. IMPRESSION: Normal chest.
[2023-01-14] MEDS ORDERED: DOXYCYCLINE 100 MG CAP PO STA (05:13)
--- NOTE | 2023-01-14 05:15 | ED ---
General Adult HPI - General Chief complaint: Upper Respiratory Infection Stated complaint: WHITLEY Time Seen by Provider: 01/14/23 03:22 Source: patient, RN notes reviewed, old records reviewed Mode of arrival: ambulatory Limitations: no limitations - History of Present Illness Initial comments: Patient is a 47 female with past medical history remarkable for hypertension, asthma, recurrent sinusitis who presents emergency department for concern for sinusitis. A few weeks ago received antibiotics for it as well as steroids and got better. However is presenting today as over the last week it has gotten once again worse. Does have some mild difficulty breathing but states this all nasal congestion. Has a mild sore throat is mild which she describes as secondary to the sinus drainage. Endorses a mild productive cough. Denies any fevers or chills. Denies any chest pain. His no nausea, vomiting, diarrhea. Does endorse nasal congestion, sinus tenderness. Presents for further evaluation this time. Has never followed up with an ENT. - Related Data Home Medications Medication Instructions Recorded Confirmed Albuterol Inhaler [Ventolin Hfa 2 puff INHALATION RT-Q6H PRN 07/11/17 06/14/19 Inhaler] Metoprolol Tartrate [Lopressor] 50 mg PO BID 06/09/19 06/14/19 Previous Rx's Medication Instructions Recorded HYDROcodone/APAP 5-325MG [[place] 1 tab PO Q4HR PRN 3 Days #18 tab 06/11/19 5-325] Ciprofloxacin HCl 500 mg PO BID 10 Days #20 tab 06/17/19 HYDROcodone/APAP 5-325MG [[place] 1 tab PO Q6HR PRN 3 Days #12 tab 09/22/22 5-325] predniSONE 50 mg PO DAILY 5 Days #5 tablet 09/22/22 Cyclobenzaprine [Flexeril] 10 mg PO TID PRN #15 tab 11/01/22 Doxycycline Hyclate 100 mg PO BID 7 Days #14 capsule 01/14/23 Allergies Allergy/AdvReac Type Severity Reaction Status Date / Time No Known Allergies Allergy Verified 11/01/22 05:53 Review of Systems ROS Statement: Those systems with pertinent positive or pertinent negative responses have been documented in the HPI. Review of Systems: CONST: Denies fever EYES: Denies blurry vision ENT: Endorses nasal congestion, sinus congestion C/V: Denies Chest pain RESP: Denies shortness of breath GI: Denies abdominal pain : Denies dysuria SKIN: Denies rash. MSK: Denies joint pain. NEURO: Denies headache ROS Other: All systems not noted in ROS Statement are negative. Past Medical History Past Medical History: Asthma, Chest Pain / Angina, Hypertension Additional Past Medical History / Comment(s): HAS BEEN HAVING EPISODES OF BLACK STOOL FOR PAST MONTH History of Any Multi-Drug Resistant Organisms: None Reported Past Surgical History: Cholecystectomy Additional Past Surgical History / Comment(s): PAIN CLINIC PROCEDURE with injections, WISDOM TEETH Past Anesthesia/Blood Transfusion Reactions: No Reported Reaction Past Psychological History: No Psychological Hx Reported Smoking Status: Never smoker Past Alcohol Use History: Occasional Past Drug Use History: None Reported - Past Family History Father Family Medical History: Cancer General Exam - General Exam Comments Initial Comments: General: Appears in no acute distress. HEAD: Normal with no signs of head trauma. EYES: PERRLA, EOMI, conjunctiva normal, no discharge. ENT: Hearing grossly intact, normal oropharynx. Sinus tenderness palpation of the bilateral maxillary sinuses. RESPIRATORY: Clear breath sounds bilaterally. No wheezes, rales, or rhonchi. C/V: Regular rate and rhythm. S1 and S2 auscultated, no edema, peripheral pulses 2+ and intact throughout ABD: Abd is soft, nontender, nondistended EXT: Normal range of motion, no obvious deformity SKIN: No rashes or lesions observed on exposed skin. NEURO: Alert and oriented 4 Limitations: no limitations Course Vital Signs 01/14/23 01/14/23 03:17 05:23 Temperature 97.7 F Pulse Rate 94 75 Respiratory 22 18 Rate Blood Pressure 145/96 136/104 O2 Sat by Pulse 96 95 Oximetry Medical Decision Making - Medical Decision Making Was pt. sent in by a medical professional or institution (, PA, HEAVY MACHINERY ASSEMBLER, urgent care, hospital, or senior care...) When possible be specific @ -No Did you speak to anyone other than the patient for history (EMS, parent, family, police, friend...)? What history was obtained from this source @ -No Did you review nursing and triage notes (agree or disagree)? Why? @ -I reviewed and agree with nursing and triage notes Were old charts reviewed (outside hosp., previous admission, EMS record, old EKG, old radiological studies, urgent care reports/EKG's, senior care records)? Report findings @ -No old charts were reviewed Differential Diagnosis (chest pain, altered mental status, abdominal pain women, abdominal pain men, vaginal bleeding, weakness, fever, dyspnea, syncope, headache, dizziness, GI bleed, back pain, seizure, CVA, palpatations, mental health, musculoskeletal)? @ -Viral infection, pneumonia, sinusitis. This list is not all inclusive. EKG interpreted by me (3pts min.). @ -None done X-rays interpreted by me (1pt min.). @ -Chest x-ray negative for acute cardio pulmonary process, obvious infiltrate. CT interpreted by me (1pt min.). @ -None done U/S interpreted by me (1pt. min.). @ -None done What testing was considered but not performed or refused? (CT, X-rays, U/S, labs)? Why? @ -None What meds were considered but not given or refused? Why? @ -None Did you discuss the management of the patient with other professionals (professionals i.e. , PA, HEAVY MACHINERY ASSEMBLER, lab, RT, psych nurse, social economist, [id number] tank crewman, teacher, electrical engineering drafting officer, piano case and bench assembler)? Give summary @ -No Was smoking cessation discussed for >3mins.? @ -No Was critical care preformed (if so, how long)? @ -No Were there social determinants of health that impacted care today? How? (Homelessness, low income, unemployed, alcoholism, drug addiction, transportation, low edu. Level, literacy, decrease access to med. care, [facility], rehab)? @ -No Was there de-escalation of care discussed even if they declined (Discuss DNR or withdrawal of care, Hospice)? DNR status @ -No What co-morbidities impacted this encounter? (DM, HTN, Smoking, COPD, CAD, Cancer, CVA, ARF, Chemo, Hep., AIDS, mental health diagnosis, sleep apnea, morbid obesity)? @ -None Was patient admitted / discharged? Hospital course, mention meds given and route, prescriptions, significant lab abnormalities, going to OR and other pertinent info. @ -Based on the patient's presentation and physical exam, concern for acute sinusitis or upper respiratory infection. We will obtain viral swabs, as well as a chest x-ray. He'll be given a dose of steroids and likely started on another antibiotic. He was in agreement this plan. Vital signs within acceptable limits. Chest x-ray shows no evidence of acute infiltrate or pneumonia. Patient's viral swabs are negative. I updated the patient. Patient will be started on doxycycline as he was on amoxicillin previously. He will be given follow-up information for ENT. He was in agreement this plan. I will provide the patient with a prescription for doxycycline. I instructed the patient to follow up with their PCP in the next 1-3 days. I provided contact information for follow up with ENT. I explained that the patient should return to the emergency department if they experience any worsening symptoms. Strict return precautions were discussed with the patient. The patient expressed un derstanding of these instructions. I answered all questions that the patient had. The patient was discharged home in good condition with their prescriptions and follow up information. Undiagnosed new problem with uncertain prognosis? @ -No Drug Therapy requiring intensive monitoring for toxicity (Heparin, Nitro, Insulin, Cardizem)? @ -No Were any procedures done? @ -No Diagnosis/symptom? @ -Sinusitis Acute, or Chronic, or Acute on Chronic? @ -Acute on chronic Uncomplicated (without systemic symptoms) or Complicated (systemic symptoms)? @ -Uncomplicated Side effects of treatment? @ -No Exacerbation, Progression, or Severe Exacerbation? @ -No Poses a threat to life or bodily function? How? (Chest pain, [place], [place], pneumonia, PE, COPD, DKA, ARF, appy, cholecystitis, CVA, Diverticulitis, Homicidal, Suicidal, threat to staff... and all critical care pts) @ -No - Lab Data Lab Results 01/14/23 Range/Units 03:53 Influenza Type A (PCR) Not Detected (Not Detectd) Influenza Type B (PCR) Not Detected (Not Detectd) RSV (PCR) Not Detected (Not Detectd) SARS-CoV-2 (PCR) Not Detected (Not Detectd) Disposition Clinical Impression: Sinusitis Disposition: HOME SELF-CARE Condition: Good Instructions (If sedation given, give patient instructions): Upper Respiratory Infection (ED) Prescriptions: Doxycycline Hyclate 100 mg PO BID 7 Days #14 capsule Is patient prescribed a controlled substance at d/c from ED?: No Referrals: None,Stated [Primary Care Provider] - 1-2 days Paul Nielson DO [Doctor of Osteopathic Medicine] - 1-2 days Time of Disposition: 05:02
[2023-01-14 05:33] VITALS: BP 136/104; PULSE 75; RESP 18
== END 2023-01-14 05:37 | disposition home or self-care (01) ==
LOC: EC 03:11
DX: J32.9 Chronic sinusitis, unspecified (principal); J45.909 Unspecified asthma, uncomplicated; I10 Essential (primary) hypertension; Z79.899 Other long term (current) drug therapy; Z20.822 Contact with and (suspected) exposure to COVID-19
CPT/HCPCS: 87636; 71046; 99285; 96372; J1100

== ENCOUNTER → 2023-03-08 | Outpatient (CLI) | payer BC ==
--- NOTE | 2023-03-08 13:21 | CT ---
EXAMINATION TYPE: CT sinus wo con CT DLP: 588 mGycm, Automated exposure control for dose reduction was used. DATE OF EXAM: 03/08/2023 1:05 PM COMPARISON: None. CLINICAL INDICATION:Male, 47 years old with history of J01.01 Acute recurrent maxillary sinusitis; PH H, chronic sinusitis CONTRAST: None. TECHNIQUE: Multiple thin axial images were obtained through the paranasal sinuses without the use of IV contrast. Additional coronal and sagittal reformatted images were submitted for evaluation. FINDINGS: Frontal sinuses: Normally developed and aerated. Frontal Recess: Clear Maxillary Sinuses: Normally developed and aerated. Small synechiae within the inferior left maxillary sinus. Maxillary Infundibula([facility]): Clear, . Ethmoid sinuses: Normally developed and aerated. Ethmoidal notch: Protected and abutting the lateral lamina. Sphenoid sinuses: Normally developed. 1 cm polypoid lesion within the right sphenoid sinus (series 4, 23). No erosion of the adjacent wall. There is sellar sphenoid sinus pneumatization without evidence of dehiscence. No dehiscence of carotid canal. No evidence of optic nerve dehiscence within the sph enoid sinus. Sphenoethmoidal recesses: Clear. Nasal septum: Within normal limits.. Nasal Turbinates: Within normal limits. Mastoid air cells & middle ears: The air cells are clear. The middle ears are grossly unremarkable. Modified Soft tissues & Brain: Partially seen without gross abnormality. Globes are intact. Other: Cribriform plate is symmetric. No evidence of bony dehiscence of skull base. Lamina papyracea is intact without evidence of remote orbital fracture or orbital prolapse into the e thmoid sinus. Pneumatization of the negro kira. IMPRESSION: 1. No significant mucosal sinus disease. 2. The ostiomeatal units, frontonasal and sphenoethmoidal recesses are clear. 3. Small nonspecific 1 cm polypoid lesion within the right sphenoid sinus. No erosion of the adjacent wall. This may represent a mucous retention cyst versus other etiologies.
== END | disposition home or self-care (01) ==
LOC: RADCTMAIN 12:45
PROVIDERS: ATTEND Otolaryngology
DX: J01.01 Acute recurrent maxillary sinusitis (principal); J34.89 Other specified disorders of nose and nasal sinuses
CPT/HCPCS: 70486

== ENCOUNTER 2023-09-14 21:52 | Emergency (ER) | payer BC ==
--- NOTE | 2023-09-14 22:55 | ED ---
URI HPI - General Chief Complaint: Upper Respiratory Infection Stated Complaint: Cough, sore throat Time Seen by Provider: 09/14/23 22:21 Source: patient Mode of arrival: ambulatory Limitations: no limitations - History of Present Illness Initial Comments: This patient is a 48-year-old man who presents to have evaluation for sore throat, cough, congestion. The patient states that his symptoms started about 8 or 9 days ago. He was seen in the clinic, started on Bactrim, but states the symptoms worsened. He was seen in the emergency department at [facility] where he was changed to amoxicillin and has been taking that for a few days now. Patient states she also has had some posttussive emesis related to the cough. MD Complaint: cough, sore throat, nasal congestion Onset/Timin -: days(s) Severity: moderate Consistency: constant Improves With: nothing Worsens With: nothing Associated Symptoms: nasal congestion, sore throat, cough Treatments Prior to Arrival: antibiotics - Related Data Home Medications Medication Instructions Recorded Confirmed Albuterol Inhaler [Ventolin Hfa 2 puff INHALATION RT-Q6H PRN 07/11/17 06/14/19 Inhaler] Metoprolol Tartrate [Lopressor] 50 mg PO BID 06/09/19 06/14/19 Previous Rx's Medication Instructions Recorded HYDROcodone/APAP 5-325MG [[place] 1 tab PO Q4HR PRN 3 Days #18 tab 06/11/19 5-325] Ciprofloxacin HCl 500 mg PO BID 10 Days #20 tab 06/17/19 HYDROcodone/APAP 5-325MG [[place] 1 tab PO Q6HR PRN 3 Days #12 tab 09/22/22 5-325] predniSONE 50 mg PO DAILY 5 Days #5 tablet 09/22/22 Cyclobenzaprine [Flexeril] 10 mg PO TID PRN #15 tab 11/01/22 Doxycycline Hyclate 100 mg PO BID 7 Days #14 capsule 01/14/23 predniSONE 60 mg PO DAILY #30 tab 09/15/23 Allergies Allergy/AdvReac Type Severity Reaction Status Date / Time No Known Allergies Allergy Verified 09/14/23 21:56 Review of Systems ROS Statement: Those systems with pertinent positive or pertinent negative responses have been documented in the HPI. ROS Other: All systems not noted in ROS Statement are negative. ENT: Reports: throat pain, congestion Respiratory: Reports: cough, dyspnea, wheezes Cardiovascular: Denies: chest pain, edema, syncope Gastrointestinal: Reports: vomiting (Posttussive). Denies: abdominal pain, nausea, hematemesis, melena, hematochezia Genitourinary: Denies: dysuria, hematuria Musculoskeletal: Denies: back pain Skin: Denies: rash Neurological: Denies: headache, weakness, numbness Past Medical History Past Medical History: Asthma, Chest Pain / Angina, Hypertension Additional Past Medical History / Comment(s): HAS BEEN HAVING EPISODES OF BLACK STOOL FOR PAST MONTH History of Any Multi-Drug Resistant Organisms: None Reported Past Surgical History: Cholecystectomy Additional Past Surgical History / Comment(s): PAIN CLINIC PROCEDURE with injections, WISDOM TEETH Past Anesthesia/Blood Transfusion Reactions: No Reported Reaction Past Psychological History: No Psychological Hx Reported Smoking Status: Never smoker Past Alcohol Use History: Occasional Past Drug Use History: None Reported - Past Family History Father Family Medical History: Cancer General Exam Limitations: no limitations General appearance: alert, in no apparent distress Head exam: Present: atraumatic, normocephalic Eye exam: Present: normal appearance. Absent: scleral icterus, conjunctival injection ENT exam: Present: normal oropharynx Neck exam: Present: normal inspection Respiratory exam: Present: wheezes. Absent: respiratory distress, rales, rhonchi, stridor Cardiovascular Exam: Present: regular rate, normal rhythm, normal heart sounds. Absent: systolic murmur, diastolic murmur, rubs, gallop GI/Abdominal exam: Present: soft. Absent: distended, tenderness, guarding, rebound, rigid, mass, pulsatile mass, hernia Extremities exam: Present: normal inspection, normal capillary refill. Absent: pedal edema, calf tenderness Back exam: Present: normal inspection. Absent: CVA tenderness (R), CVA tenderness (L) Neurological exam: Present: alert Skin exam: Present: warm, dry, intact, normal color. Absent: rash Course Vital Signs 09/14/23 09/14/23 09/15/23 21:56 23:20 00:40 Temperature 98.2 F 98.1 F 98.1 F Pulse Rate 100 104 H 104 H Respiratory 18 20 20 Rate Blood Pressure 125/84 115/80 115/80 O2 Sat by Pulse 98 96 96 Oximetry Medical Decision Making - Medical Decision Making The patient had chest x-ray which I interpreted as negative for acute infiltrate, pneumothorax, congestive heart failure The patient had soft tissue x-ray of the neck which I interpreted as negative for foreign body or airway obstruction Was pt. sent in by a medical professional or institution (GER Holland, ATTIC BLOWER, urgent care, hospital, or longterm...) When possible be specific @ -[No] Did you speak to anyone other than the patient for history (EMS, parent, family, police, friend...)? What history was obtained from this source @ -[No] Did you review nursing and triage notes (agree or disagree)? Why? @ -[I reviewed and agree with nursing and triage notes] Were old charts reviewed (outside hosp., previous admission, EMS record, old EKG, old radiological studies, urgent care reports/EKG's, longterm records)? Report findings @ -[No old charts were reviewed] Differential Diagnosis (chest pain, altered mental status, abdominal pain women, abdominal pain men, vaginal bleeding, weakness, fever, dyspnea, syncope, headache, dizziness, GI bleed, back pain, seizure, CVA, palpatations, mental health, musculoskeletal)? @ -[Differential Dyspnea: Coronary syndrome, arrhythmia, tamponade, asthma, COPD, pulmonary embolism, pneumonia, pneumothorax, pulmonary effusion, anaphylaxis, diabetic ketoacidosis, flailed chest, pulmonary contusion, diaphragmatic rupture, anemia, neuromuscular, this is not meant to be an all-inclusive list. EKG interpreted by me (3pts min.). @ -[As above] X-rays interpreted by me (1pt min.). @ -[I interpreted as above CT interpreted by me (1pt min.). @ -[None done] U/S interpreted by me (1pt. min.). @ -[None done] What testing was considered but not performed or refused? (CT, X-rays, U/S, labs)? Why? @ -[None] What meds were considered but not given or refused? Why? @ -[None] Did you discuss the management of the patient with other professionals (professionals i.e. GER Holland, ATTIC BLOWER, lab, RT, psych nurse, nephrology social worker, gun welder, teacher, artillery officer, case hardener)? Give summary @ -[No] Was smoking cessation discussed for >3mins.? @ -[No] Was critical care preformed (if so, how long)? @ -[No] Were there social determinants of health that impacted care today? How? (Homelessness, low income, unemployed, alcoholism, drug addiction, transportation, low edu. Level, literacy, decrease access to med. care, nursing home, rehab)? @ -[No] Was there de-escalation of care discussed even if they declined (Discuss DNR or withdrawal of care, Hospice)? DNR status @ -[No] What co-morbidities impacted this encounter? (DM, HTN, Smoking, COPD, CAD, Cancer, CVA, ARF, Chemo, Hep., AIDS, mental health diagnosis, sleep apnea, morbid obesity)? @ -[None] Was patient admitted / discharged? Hospital course, mention meds given and route, prescriptions, significant lab abnormalities, going to OR and other pertinent info. @ -[The patient is a 48-year-old man with cough and dyspnea, the exam and workup consistent with bronchitis. Discussed appropriate further care and follow-up as well as return parameters. Undiagnosed new problem with uncertain prognosis? @ -[No] Drug Therapy requiring intensive monitoring for toxicity (Heparin, Nitro, Insulin, Cardizem)? @ -[No] Were any procedures done? @ -[No] Diagnosis/symptom? @ -[Bronchitis Acute, or Chronic, or Acute on Chronic? @ -[Acute Uncomplicated (without systemic symptoms) or Complicated (systemic symptoms)? @ -[Uncomplicated Side effects of treatment? @ -[No] Exacerbation, Progression, or Severe Exacerbation? @ -[No] Poses a threat to life or bodily function? How? (Chest pain, [place], [place], pneumonia, PE, COPD, DKA, ARF, appy, cholecystitis, CVA, Diverticulitis, Homicidal, Suicidal, threat to staff... and all critical care pts) @ -[No] - Lab Data Lab Results 09/14/23 Range/Units 22:51 Influenza Type A (PCR) Not Detected (Not Detectd) Influenza Type B (PCR) Not Detected (Not Detectd) RSV (PCR) Not Detected (Not Detectd) SARS-CoV-2 (PCR) Not Detected (Not Detectd) Disposition Clinical Impression: Bronchitis Disposition: HOME SELF-CARE Condition: Good Instructions (If sedation given, give patient instructions): Acute Bronchitis (ED) Prescriptions: predniSONE 60 mg PO DAILY #30 tab Is patient prescribed a controlled substance at d/c from ED?: No Referrals: Dmitri Palmer MD [Primary Care Provider] - 1-2 days
[2023-09-14 23:33] VITALS: BP 115/80; PULSE 104; RESP 20
[2023-09-14 23:56] VITALS: TEMP 98.1
--- NOTE | 2023-09-15 00:04 | XR ---
EXAM: XR Soft Tissue Neck CLINICAL HISTORY: XR Reason: cough TECHNIQUE: Frontal and lateral views of the soft tissues of the neck. COMPARISON: No relevant prior studies available. FINDINGS: Airway: The trachea appears unremarkable. Bones/joints: Mild degenerative changes in the mid to lower cervical spine. No fracture or subluxation is seen. Soft tissues: The retropharyngeal soft tissues appear within normal limits. Normal epiglottis. No foreign body is seen. Other findings: The a glass is unremarkable. IMPRESSION: No acute findings in the neck.
--- NOTE | 2023-09-15 00:05 | XR ---
EXAM: XR Chest, 2 Views CLINICAL HISTORY: XR Reason: cough TECHNIQUE: Frontal and lateral views of the chest. COMPARISON: January 14, 2023 FINDINGS: Lungs: Unremarkable. No consolidation. Pleural space: Unremarkable. No pneumothorax. Heart: Unremarkable. No cardiomegaly. Mediastinum: Unremarkable. Normal mediastinal contour. Bones/joints: Mild degenerative changes in the mid to lower thoracic spine. No acute fracture. Upper abdomen: There is no pneumoperitoneum under the diaphragm. IMPRESSION: No acute findings in the chest.
[2023-09-15] MEDS ORDERED: predniSONE 20 MG TAB PO STA (00:20)
== END 2023-09-15 00:42 | disposition home or self-care (01) ==
LOC: EC 21:52
DX: J40 Bronchitis, not specified as acute or chronic (principal); I10 Essential (primary) hypertension; Z20.822 Contact with and (suspected) exposure to COVID-19; Z79.899 Other long term (current) drug therapy
CPT/HCPCS: 87636; 70360; 71046; 99283; J7512

== ENCOUNTER 2023-10-29 16:50 | Emergency (ER) | payer BC ==
[2023-10-29] MEDS ORDERED: lisinopriL 10 MG TAB PO STA (17:13)
--- NOTE | 2023-10-29 17:15 | ED ---
General Adult HPI - General Chief complaint: Chest Pain Stated complaint: Chest pain, high blood presure, headache Time Seen by Provider: 10/29/23 16:57 Source: patient Mode of arrival: ambulatory Limitations: no limitations - History of Present Illness Initial comments: Dictation was produced using [employer] dictation software. please excuse any gram matical, word or spelling errors. Chief Complaint: 48-year-old male presents emergency department for elevated blood pressure History of Present Illness: Patient is a 48-year-old male presents emergency department for elevated blood pressure. Patient states he has run out of his blood pressure medication and has not taken it for weeks. He takes lisinopril 10 mg daily. States that he is in between primary care physicians. He has a history of hypertension his blood pressure systolic is normally about 140. He checked his blood pressure at home was in the 170s systolic. He did have a very mild sharp chest pain to his left chest. Does not feel like pressure does not go down the arm or up to his jaw. No associated nausea or diaphoresis. Patient does not have any history of cardiac disease. Has no family history of cardiac disease. Denies tobacco use . Doesn't have a history of diabetes or dyslipidemia. The ROS documented in this emergency department record has been reviewed and confirmed by me. Those systems with pertinent positive or negative responses have been documented in the HPI. All other systems are other negative and/or noncontributory. - Related Data Home Medications Medication Instructions Recorded Confirmed Albuterol Inhaler [Ventolin Hfa 2 puff INHALATION RT-Q6H PRN 07/11/17 06/14/19 Inhaler] Metoprolol Tartrate [Lopressor] 50 mg PO BID 06/09/19 06/14/19 Previous Rx's Medication Instructions Recorded HYDROcodone/APAP 5-325MG [Maynard 1 tab PO Q4HR PRN 3 Days #18 tab 06/11/19 5-325] Ciprofloxacin HCl 500 mg PO BID 10 Days #20 tab 06/17/19 HYDROcodone/APAP 5-325MG [Maynard 1 tab PO Q6HR PRN 3 Days #12 tab 09/22/22 5-325] predniSONE 50 mg PO DAILY 5 Days #5 tablet 09/22/22 Cyclobenzaprine [Flexeril] 10 mg PO TID PRN #15 tab 11/01/22 Doxycycline Hyclate 100 mg PO BID 7 Days #14 capsule 01/14/23 predniSONE 60 mg PO DAILY #30 tab 09/15/23 lisinopriL [Zestril] 10 mg PO DAILY 14 Days #14 tab 10/29/23 Allergies Allergy/AdvReac Type Severity Reaction Status Date / Time No Known Allergies Allergy Verified 10/29/23 16:54 Review of Systems ROS Statement: Those systems with pertinent positive or pertinent negative responses have been documented in the HPI. ROS Other: All systems not noted in ROS Statement are negative. Past Medical History Past Medical History: Asthma, Chest Pain / Angina, Hypertension Additional Past Medical History / Comment(s): HAS BEEN HAVING EPISODES OF BLACK STOOL FOR PAST MONTH History of Any Multi-Drug Resistant Organisms: None Reported Past Surgical History: Cholecystectomy Additional Past Surgical History / Comment(s): PAIN CLINIC PROCEDURE with i njections, WISDOM TEETH Past Anesthesia/Blood Transfusion Reactions: No Reported Reaction Past Psychological History: No Psychological Hx Reported Smoking Status: Never smoker Past Alcohol Use History: Occasional Past Drug Use History: None Reported - Past Family History Father Family Medical History: Cancer General Exam - General Exam Comments Initial Comments: PHYSICAL EXAM: General Impression: Alert and oriented x3, not in acute distress HEENT: Normocephalic atraumatic, extra-ocular movements intact, pupils equal and reactive to light bilaterally, mucous membranes moist. Cardiovascular: Heart regular rate and rhythm Chest: Able to complete full sentences, no retractions, no tachypnea Abdomen: abdomen soft, non-tender, non-distended, no organomegaly Musculoskeletal: Pulses present and equal in all extremities, no peripheral ed jaky Motor: no focal deficits noted Neurological: CN II-XII grossly intact, no focal motor or sensory deficits noted Skin: Intact with no visualized rashes Psych: Normal affect and mood Limitations: no limitations Course Vital Signs 10/29/23 10/29/23 16:52 17:12 Temperature 98.1 F Pulse Rate 85 86 Respiratory 20 16 Rate Blood Pressure 165/104 148/105 O2 Sat by Pulse 97 97 Oximetry EKG Findings - EKG Comments: EKG Findings:: My EKG interpretation: Ventricular rate 82, sinus rhythm,. 162, QRS 108, QTC 418. No WA prolongation, no QTC prolongation, no ST or T-wave changes noted. EKG compared to 06/14/2019 showing no changes. Overall, this EKG is unremarkable Medical Decision Making - Medical Decision Making Was pt. sent in by a medical professional or institution (, GER, PRESS TENDER, urgent care, hospital, or alf...) When possible be specific @ -No Did you speak to anyone other than the patient for history (EMS, parent, family, police, friend...)? What history was obtained from this source @ -No Did you review nursing and triage notes (agree or disagree)? Why? @ -I reviewed and agree with nursing and triage notes Were old charts reviewed (outside hosp., previous admission, EMS record, old EKG, old radiological studies, urgent care reports/EKG's, alf records)? Report findings @ -No old charts were reviewed Differential Diagnosis (chest pain, altered mental status, abdominal pain women, abdominal pain men, vaginal bleeding, musculoskeletal, weakness, fever, dyspnea, syncope, headache, dizziness, GI bleed, back pain, seizure, CVA, palpatations, mental health)? @ -Differential Chest Pain: Stable Angina, Unstable Angina, STEMI, NSTEMI Aortic Dissection, Pneumothorax, Musculoskeletal, Esophageal Spasm GERD, Cholecystitis, Pancreatitis, Zoster, this is not meant to be an all-inclusive list. EKG interpreted by me (3pts min.). @ -see above X-rays interpreted by me (1pt min.). @ -Chest x-ray shows no acute processes CT interpreted by me (1pt min.). @ -None done U/S interpreted by me (1pt. min.). @ -None done What testing was considered but not performed or refused? (CT, X-rays, U/S, labs)? Why? @ -None What meds were considered but not given or refused? Why? @ -None Did you discuss the management of the patient with other professionals (professionals i.e. , GER, PRESS TENDER, lab, RT, psych nurse, social psychologist, garage door service technician, teacher, weapons officer naval activity, manager case management)? Give summary @ -No Was smoking cessation discussed for >3mins.? @ -No Was critical care preformed (if so, how long)? @ -No Were there social determinants of health that impacted care today? How? (Homelessness, low income, unemployed, alcoholism, drug addiction, transportation, low edu. Level, literacy, decrease access to med. care, intermediate, rehab)? @ -No Was there de-escalation of care discussed even if they declined (Discuss DNR or withdrawal of care, Hospice)? DNR status @ -No What co-morbidities impacted this encounter? (DM, HTN, Smoking, COPD, CAD, Cancer, CVA, ARF, Chemo, Hep., AIDS, mental health diagnosis, sleep apnea, morbid obesity)? @ -None Was patient admitted / discharged? Hospital course, mention meds given and route, prescriptions, significant lab abnormalities, going to OR and other pertinent info. @ -48-year-old male presents emergency department with atypical chest pain. He also has chief complaint of elevated blood pressure. Vital signs stable. Jazzy ent well-appearing. Laboratory evaluation is unremarkable. Troponin is negative. Chest x-ray is nonacute. Patient's blood pressure improved without any sort of intervention. Patient given on his daily lisinopril until he can follow-up with his primary care doctor. Undiagnosed new problem with uncertain prognosis? @ -No Drug Therapy requiring intensive monitoring for toxicity (Heparin, Nitro, Insulin, Cardizem)? @ -No Were any procedures done? @ -No Diagnosis/symptom? Acute, or Chronic, or Acute on Chronic? Uncomplicated (without systemic symptoms) or Complicated (systemic symptoms)? @ -Chest pain Side effects of treatment? @ -No Exacerbation, Progression, or Severe Exacerbation? @ -No Poses a threat to life or bodily function? How? (Chest pain, [place], [place], pneumonia, PE, COPD, DKA, ARF, appy, cholecystitis, CVA, Diverticulitis, Homicidal, Suicidal, threat to staff... and all critical care pts) @ -No - Lab Data Result diagrams: 10/29/23 17:13 10/29/23 17:13 Lab Results 10/29/23 10/29/23 10/29/23 Range/Units 17:13 17:13 17:13 WBC 5.1 (3.8-10.6) k/uL RBC 5.54 (4.30-5.90) m/uL Hgb 15.3 (13.0-17.5) gm/dL Hct 46.9 (39.0-53.0) % MCV 84.7 (80.0-100.0) fL MCH 27.6 (25.0-35.0) pg MCHC 32.6 (31.0-37.0) g/dL RDW 14.6 (11.5-15.5) % Plt Count 187 (150-450) k/uL MPV 7.1 Neutrophils % 67 % Lymphocytes % 23 % Monocytes % 5 % Eosinophils % 1 % Basophils % 0 % Neutrophils # 3.4 (1.3-7.7) k/uL Lymphocytes # 1.2 (1.0-4.8) k/uL Monocytes # 0.3 (0-1.0) k/uL Eosinophils # 0.1 (0-0.7) k/uL Basophils # 0.0 (0-0.2) k/uL PT 10.1 (10.0-12.5) sec INR 0.9 (<1.2) APTT 25.2 (22.0-30.0) sec Sodium 140 (137-145) mmol/L Potassium 3.9 (3.5-5.1) mmol/L Chloride 104 (98-107) mmol/L Carbon Dioxide 26 (22-30) mmol/L Anion Gap 10 mmol/L BUN 16 (9-20) mg/dL Creatinine 0.68 (0.66-1.25) mg/dL Est GFR (CKD-EPI)AfAm >90 (>60 ml/min/1.73 sqM) Est GFR (CKD-EPI)NonAf >90 (>60 ml/min/1.73 sqM) Glucose 95 (74-99) mg/dL Calcium 8.7 (8.4-10.2) mg/dL Magnesium 2.1 (1.6-2.3) mg/dL Total Bilirubin 1.1 (0.2-1.3) mg/dL AST 27 (17-59) U/L ALT 32 (4-49) U/L Alkaline Phosphatase 93 (38-126) U/L Troponin I (0.000-0.034) ng/mL Total Protein 7.1 (6.3-8.2) g/dL Albumin 4.4 (3.5-5.0) g/dL 10/29/23 Range/Units 17:13 WBC (3.8-10.6) k/uL RBC (4.30-5.90) m/uL Hgb (13.0-17.5) gm/dL Hct (39.0-53.0) % MCV (80.0-100.0) fL MCH (25.0-35.0) pg MCHC (31.0-37.0) g/dL RDW (11.5-15.5) % Plt Count (150-450) k/uL MPV Neutrophils % % Lymphocytes % % Monocytes % % Eosinophils % % Basophils % % Neutrophils # (1.3-7.7) k/uL Lymphocytes # (1.0-4.8) k/uL Monocytes # (0-1.0) k/uL Eosinophils # (0-0.7) k/uL Basophils # (0-0.2) k/uL PT (10.0-12.5) sec INR (<1.2) APTT (22.0-30.0) sec Sodium (137-145) mmol/L Potassium (3.5-5.1) mmol/L Chloride (98-107) mmol/L Carbon Dioxide (22-30) mmol/L Anion Gap mmol/L BUN (9-20) mg/dL Creatinine (0.66-1.25) mg/dL Est GFR (CKD-EPI)AfAm (>60 ml/min/1.73 sqM) Est GFR (CKD-EPI)NonAf (>60 ml/min/1.73 sqM) Glucose (74-99) mg/dL Calcium (8.4-10.2) mg/dL Magnesium (1.6-2.3) mg/dL Total Bilirubin (0.2-1.3) mg/dL AST (17-59) U/L ALT (4-49) U/L Alkaline Phosphatase (38-126) U/L Troponin I <0.012 (0.000-0.034) ng/mL Total Protein (6.3-8.2) g/dL Albumin (3.5-5.0) g/dL Disposition Clinical Impression: Chest pain Disposition: HOME SELF-CARE Condition: Good Instructions (If sedation given, give patient instructions): Chest Pain (ED) Prescriptions: lisinopriL [Zestril] 10 mg PO DAILY 14 Days #14 tab Is patient prescribed a controlled substance at d/c from ED?: No Referrals: None,Stated [REFERRING] - 1-2 days Time of Disposition: 18:13
--- NOTE | 2023-10-29 17:22 | XR ---
EXAMINATION TYPE: XR chest 2V DATE OF EXAM: 10/29/2023 COMPARISON: 09/14/2023 HISTORY: 48-year-old male with chest pain TECHNIQUE: PA and lateral views FINDINGS: Heart upper limits of normal in size. Aorta and pulmonary vasculature within normal limits. No consol idation or pleural effusion. IMPRESSION: No acute cardiopulmonary process.
[2023-10-29 17:26] LABS: Basophils % (A) 0 %; Eosinophils # (A) 0.1 k/uL (0-0.7); Eosinophils % (A) 1 %; HCT 46.9 % (39.0-53.0); HGB 15.3 gm/dL (13.0-17.5); Lymphocytes # (A) 1.2 k/uL (1.0-4.8); Lymphocytes % (A) 23 %; MCH 27.6 pg (25.0-35.0); MCHC 32.6 g/dL (31.0-37.0); MCV 84.7 fL (80.0-100.0); Mean Platelet Volume 7.1; Monocytes # (A) 0.3 k/uL (0-1.0); Monocytes % (A) 5 %; Neutrophils # (A) 3.4 k/uL (1.3-7.7); Neutrophils % (A) 67 %; Platelet Count 187 k/uL (150-450); RBC 5.54 m/uL (4.30-5.90); RDW 14.6 % (11.5-15.5); WBC 5.1 k/uL (3.8-10.6)
[2023-10-29 17:29] VITALS: PULSE 86; RESP 16
[2023-10-29 17:35] LABS: ALT 32 U/L (4-49); AST 27 U/L (17-59); African American GFR (CKD) >90 (>60 ml/min/1.73 sqM); Albumin 4.4 g/dL (3.5-5.0); Alkaline Phosphatase 93 U/L (38-126); Anion Gap 10 mmol/L; Blood Urea Nitrogen 16 mg/dL (9-20); Calcium 8.7 mg/dL (8.4-10.2); Carbon Dioxide 26 mmol/L (22-30); Chloride 104 mmol/L (98-107); Glucose 95 mg/dL (74-99); Magnesium 2.1 mg/dL (1.6-2.3); Non-African American GFR(CKD) >90 (>60 ml/min/1.73 sqM); Potassium 3.9 mmol/L (3.5-5.1); Sodium 140 mmol/L (137-145); Total Bilirubin 1.1 mg/dL (0.2-1.3); Total Protein 7.1 g/dL (6.3-8.2)
[2023-10-29 17:46] LABS: INR 0.9 (<1.2); Partial Thromboplastin Time 25.2 sec (22.0-30.0); Prothrombin Time 10.1 sec (10.0-12.5)
[2023-10-29 18:35] VITALS: BP 139/106; TEMP 98.9
== END 2023-10-29 18:26 | disposition home or self-care (01) ==
LOC: EC 16:50
DX: R07.89 Other chest pain (principal); I10 Essential (primary) hypertension; J45.909 Unspecified asthma, uncomplicated; Z79.899 Other long term (current) drug therapy
CPT/HCPCS: 36415; 71046; 80053; 83735; 84484; 85025; 85610; 85730; 93005; 99284

== ENCOUNTER 2024-08-28 21:00 | Emergency (ER) | payer BC ==
--- NOTE | 2024-08-28 21:50 | ED ---
Abdominal Pain HPI - General Chief Complaint: Abdominal Pain Stated Complaint: back pain Time Seen by Provider: 08/28/24 21:29 Source: patient Mode of arrival: wheelchair Limitations: no limitations - History of Present Illness Initial Comments: Patient is a 49-year-old male past medical history prior kidney stones presenting today for left flank pain x 2-day. Patient states that he was at work last night when he felt like some was punching him in the left flank. States radiates around to the left lower quadrant. Today prior to arrival he began to feel eczema and was stabbing him in the left flank. Continues to rate around left lower quadrant and towards left side of his groin. Denies dysuria or hematuria or difficulty urinating. Denies other back pain, numbness or weakness in the lower extremities. Denies fevers or chills. Denies chest pain or shortness of breath. Has nausea but denies vomiting. No black or bloody stools. No diarrhea. No constipation. Of note patient states prior to arrival pain is 10 out of 10 however improved spontaneously while sitting in the waiting room and is now 5 out of 10. No medications prior to arrival - Related Data Home Medications Medication Instructions Recorded Confirmed lisinopriL [Prinivil] 10 mg PO DAILY 10/29/23 10/29/23 Previous Rx's Medication Instructions Recorded lisinopriL [Zestril] 10 mg PO DAILY 14 Days #14 tab 10/29/23 Ketorolac [Toradol] 10 mg PO Q12HR 7 Days #15 tab 08/29/24 Tamsulosin [Flomax] 0.4 mg PO DAILY #10 cap 08/29/24 Allergies Allergy/AdvReac Type Severity Reaction Status Date / Time No Known Allergies Allergy Verified 08/28/24 21:06 Review of Systems ROS Statement: Those systems with pertinent positive or pertinent negative responses have been documented in the HPI. ROS Other: All systems not noted in ROS Statement are negative. Past Medical History Past Medical History: Asthma, Chest Pain / Angina, Hypertension Additional Past Medical History / Comment(s): HAS BEEN HAVING EPISODES OF BLACK STOOL FOR PAST MONTH History of Any Multi-Drug Resistant Organisms: None Reported Past Surgical History: Cholecystectomy Additional Past Surgical History / Comment(s): PAIN CLINIC PROCEDURE with injections, WISDOM TEETH Past Anesthesia/Blood Transfusion Reactions: No Reported Reaction Past Psychological History: No Psychological Hx Reported Smoking Status: Never smoker Past Alcohol Use History: Occasional Past Drug Use History: None Reported - Past Family History Father Family Medical History: Cancer General Exam - General Exam Comments Initial Comments: PE: CONSTITUTIONAL: [no apparent distress, well appearing] SKIN: [warm, dry, no jaundice, hives or petechiae] EYES:[ pupils are equally round, extraocular movements intact without nystagmus, clear conjunctiva, non-icteric sclera] HENT: [normocephalic, atraumatic, moist mucus membranes, oropharynx clear without exudates] NECK: , [Full range of motion, normal appearance] PULMONARY: [clear to auscultation without wheezes, rhonchi, or rales, normal excursion, no accessory muscle use and no stridor] CARDIOVASCULAR:[ regular rate, rhythm, normal S1 and S2. No appreciated murmurs, rubs or gallops. Strong radial pulses with intact distal perfusion. No lower extremity edema] GASTROINTESTINAL: [soft, active bowel sounds throughout, non-tender, non- distended, no palpable masses, no rebound or guarding. No hepatosplenomegaly] GENITOURINARY: MUSCULOSKELETAL: [Extremities have no gross deformity, no edema, redness, or swelling. No calf swelling ] NEUROLOGIC: [_a/o x 3, GCS 15, normal mentation and speech. Moves all extremi ties x 4 without motor or sensory deficit] PSYCHIATRIC:[ _normal mood and affect, thought process is clear and linear] Plus radial pulses bilateral lower extremities, positive right left CVA tenderne ss, no midline spinal tenderness, mild left lower quadrant tenderness, testicular exam performed with Jennifer, bedside. No testicular swelling or erythema, no testicular tenderness, normal lie, normal reflex, , no hernias palpated, no sores or discharge Limitations: no limitations Course Vital Signs 08/28/24 08/28/24 08/28/24 21:06 22:26 23:08 Temperature 97.5 F L Pulse Rate 63 77 75 Respiratory 20 18 19 Rate Blood Pressure 142/88 151/102 149/99 O2 Sat by Pulse 98 96 95 Oximetry Medical Decision Making - Medical Decision Making Was pt. sent in by a medical professional or institution (, PA, DELIVERY PROFESSIONAL, urgent care, hospital, or prison...) When possible be specific @ -[No] Did you speak to anyone other than the patient for history (EMS, parent, family, police, friend...)? What history was obtained from this source @ -[No] Did you review nursing and triage notes (agree or disagree)? Why? @ -[I reviewed and agree with nursing and triage notes] Were old charts reviewed (outside hosp., previous admission, EMS record, old EKG, old radiological studies, urgent care reports/EKG's, prison records)? Report findings @ -[No old charts were reviewed] Differential Diagnosis (chest pain, altered mental status, abdominal pain women, abdominal pain men, vaginal bleeding, weakness, fever, dyspnea, syncope, headache, dizziness, GI bleed, back pain, seizure, CVA, palpatations, mental health, musculoskeletal)? @ -[not applicable] EKG interpreted by me (3pts min.). @ -[As above] X-rays interpreted by me (1pt min.). @ -[None done] CT interpreted by me (1pt min.). @ -[None done] U/S interpreted by me (1pt. min.). @ -[None done] What testing was considered but not performed or refused? (CT, X-rays, U/S, labs)? Why? @ -[None] What meds were considered but not given or refused? Why? @ -[None] Did you discuss the management of the patient with other professionals (professionals i.e. , PA, DELIVERY PROFESSIONAL, lab, RT, psych nurse, sexual assault social worker, wheel grinder, teacher, credit review officer, business case analyst)? Give summary @ -[No] Was smoking cessation discussed for >3mins.? @ -[No] Was critical care preformed (if so, how long)? @ -[No] Were there social determinants of health that impacted care today? How? (Homelessness, low income, unemployed, alcoholism, drug addiction, transportation, low edu. Level, literacy, decrease access to med. care, prison, rehab)? @ -[No] Was there de-escalation of care discussed even if they declined (Discuss DNR or withdrawal of care, Hospice)? @ -[No] What co-morbidities impacted this encounter? (DM, HTN, Smoking, COPD, CAD, Cancer, CVA, ARF, Chemo, Hep., AIDS, mental health diagnosis, sleep apnea, morbid obesity)? @ -[None] Was patient admitted / discharged? Hospital course, mention meds given and route, prescriptions, significant lab abnormalities, going to OR and other pertinent info. @ -[hospital course] 49-year-old gentleman presenting today for left flank pain rating down to the left lower quadrant history of kidney stones. Vital stable on arrival, afebrile. His pain did improve spontaneously slight. Exam significant positive CVA tenderness left CVA tenderness, positive lower quad tenderness, reassuring genital exam. Discussed plan for CT abdomen pelvis with contrast urinalysis, pain medication basic labs IV fluids. Patient agreeable with plan Significant for 5 mm stone in the left ureter with mild-moderate hydronephrosis Reviewed patient's labs, slightly elevated creatinine, urinalysis with blood but no leukocyte esterase or nitrites. On my reassessment patient's pain is contr olled. Discussed plan for discharge home with outpatient follow-up. Patient is agreeable plan Reviewed Undiagnosed new problem with uncertain prognosis? @ -[No] Drug Therapy requiring intensive monitoring for toxicity (Heparin, Nitro, Insulin, Cardizem)? @ -[No] Were any procedures done? @ -[No] Diagnosis/symptom? @ -Ureterolithiasis Acute, or Chronic, or Acute on Chronic? @ -Acute Uncomplicated (without systemic symptoms) or Complicated (systemic symptoms)? @ -Uncomplicated Side effects of treatment? @ -[No] Exacerbation, Progression, or Severe Exacerbation? @ -[No] Poses a threat to life or bodily function? How? (Chest pain, [place], [place], pneumonia, PE, COPD, DKA, ARF, appy, cholecystitis, CVA, Diverticulitis, Homicidal, Suicidal, threat to staff... and all critical care pts) @ -[No] - Lab Data Result diagrams: 08/28/24 21:24 08/28/24 21:24 Lab Results 08/28/24 08/28/24 08/28/24 Range/Units :24 21:24 21:24 WBC 5.7 (3.8-10.6) k/uL RBC 5.63 (4.30-5.90) m/uL Hgb 15.1 (13.0-17.5) gm/dL Hct 47.3 (39.0-53.0) % MCV 84.1 (80.0-100.0) fL MCH 26.8 (25.0-35.0) pg MCHC 31.9 (31.0-37.0) g/dL RDW 14.4 (11.5-15.5) % Plt Count 228 (150-450) k/uL MPV 7.1 Neutrophils % 57 % Lymphocytes % 29 % Monocytes % 8 % Eosinophils % 2 % Basophils % 0 % Neutrophils # 3.3 (1.3-7.7) k/uL Lymphocytes # 1.7 (1.0-4.8) k/uL Monocytes # 0.4 (0-1.0) k/uL Eosinophils # 0.1 (0-0.7) k/uL Basophils # 0.0 (0-0.2) k/uL PT 10.4 (10.0-12.5) sec INR 0.9 (<1.2) APTT 24.9 (22.0-30.0) sec Sodium 144 (137-145) mmol/L Potassium 4.1 (3.5-5.1) mmol/L Chloride 109 H (98-107) mmol/L Carbon Dioxide 28 (22-30) mmol/L Anion Gap 7 mmol/L BUN 17 (9-20) mg/dL Creatinine 1.20 (0.66-1.25) mg/dL Est GFR (CKD-EPI)AfAm 82 (>60 ml/min/1.73 sqM) Est GFR (CKD-EPI)NonAf 71 (>60 ml/min/1.73 sqM) Glucose 100 H (74-99) mg/dL Calcium 8.9 (8.4-10.2) mg/dL Total Bilirubin 1.1 (0.2-1.3) mg/dL AST 32 (17-59) U/L ALT 31 (4-49) U/L Alkaline Phosphatase 88 (38-126) U/L Total Protein 7.1 (6.3-8.2) g/dL Albumin 4.4 (3.5-5.0) g/dL Amylase 42 (30-110) U/L Lipase 75 (23-300) U/L Urine Color Urine Appearance (Clear) Urine pH (5.0-8.0) Ur Specific [place] (1.001-1.035) Urine Protein (Negative) Urine Glucose (UA) (Negative) Urine Ketones (Negative) Urine Blood (Negative) Urine Nitrite (Negative) Urine Bilirubin (Negative) Urine Urobilinogen (<2.0) mg/dL Ur Leukocyte Esterase (Negative) Urine RBC (0-5) /hpf Urine WBC (0-5) /hpf Urine Mucus (None) /hpf 08/28/24 Range/Units 23:45 WBC (3.8-10.6) k/uL RBC (4.30-5.90) m/uL Hgb (13.0-17.5) gm/dL Hct (39.0-53.0) % MCV (80.0-100.0) fL MCH (25.0-35.0) pg MCHC (31.0-37.0) g/dL RDW (11.5-15.5) % Plt Count (150-450) k/uL MPV Neutrophils % % Lymphocytes % % Monocytes % % Eosinophils % % Basophils % % Neutrophils # (1.3-7.7) k/uL Lymphocytes # (1.0-4.8) k/uL Monocytes # (0-1.0) k/uL Eosinophils # (0-0.7) k/uL Basophils # (0-0.2) k/uL PT (10.0-12.5) sec INR (<1.2) APTT (22.0-30.0) sec Sodium (137-145) mmol/L Potassium (3.5-5.1) mmol/L Chloride (98-107) mmol/L Carbon Dioxide (22-30) mmol/L Anion Gap mmol/L BUN (9-20) mg/dL Creatinine (0.66-1.25) mg/dL Est GFR (CKD-EPI)AfAm (>60 ml/min/1.73 sqM) Est GFR (CKD-EPI)NonAf (>60 ml/min/1.73 sqM) Glucose (74-99) mg/dL Calcium (8.4-10.2) mg/dL Total Bilirubin (0.2-1.3) mg/dL AST (17-59) U/L ALT (4-49) U/L Alkaline Phosphatase (38-126) U/L Total Protein (6.3-8.2) g/dL Albumin (3.5-5.0) g/dL Amylase (30-110) U/L Lipase (23-300) U/L Urine Color Yellow Urine Appearance Clear (Clear) Urine pH 6.5 (5.0-8.0) Ur Specific [place] 1.019 (1.001-1.035) Urine Protein Trace H (Negative) Urine Glucose (UA) Negative (Negative) Urine Ketones Negative (Negative) Urine Blood Large H (Negative) Urine Nitrite Negative (Negative) Urine Bilirubin Negative (Negative) Urine Urobilinogen <2.0 (<2.0) mg/dL Ur Leukocyte Esterase Negative (Negative) Urine RBC >182 H (0-5) /hpf Urine WBC 2 (0-5) /hpf Urine Mucus Moderate H (None) /hpf Disposition Clinical Impression: Ureterolithiasis Disposition: HOME SELF-CARE Condition: Good Additional Instructions: Every disease is a spectrum and a small chance still exists that a serious condition could develop, for this reason, please monitor yourself closely for new, changing or worsening symptoms, symptoms that do not improve in 48 hours, burning with urination, confusion, fever, inability to tolerate/keep down fluids or your medications, inability to follow up with outpatient providers as instructed and should you experience these symptoms or should you have any further concerns for your wellbeing please return to the ED or call 911 immediately. Please drink plenty of fluids and follow with Dr. Kebede within 48 hours. You had a 5 mm kidney stone on the left side within the ureter. PLEASE call your primary care physician as soon as possible to arrange / discuss plan for followup appointment. Appointment in the next 1-3 days is strongly encouraged if possible. PLEASE let us know here before you leave if there is anything further we can do to be of any assistance. Take care and feel Better! Prescriptions: Tamsulosin [Flomax] 0.4 mg PO DAILY #10 cap Ketorolac [Toradol] 10 mg PO Q12HR 7 Days #15 tab Referrals: Dmitri Palmer MD [Primary Care Provider] - 1-2 days Harjeet Kebede MD [STAFF PHYSICIAN] - 1-2 days
[2024-08-28 22:13] LABS: Basophils % (A) 0 %; Eosinophils # (A) 0.1 k/uL (0-0.7); Eosinophils % (A) 2 %; HCT 47.3 % (39.0-53.0); HGB 15.1 gm/dL (13.0-17.5); Lymphocytes # (A) 1.7 k/uL (1.0-4.8); Lymphocytes % (A) 29 %; MCH 26.8 pg (25.0-35.0); MCHC 31.9 g/dL (31.0-37.0); MCV 84.1 fL (80.0-100.0); Mean Platelet Volume 7.1; Monocytes # (A) 0.4 k/uL (0-1.0); Monocytes % (A) 8 %; Neutrophils # (A) 3.3 k/uL (1.3-7.7); Neutrophils % (A) 57 %; Platelet Count 228 k/uL (150-450); RBC 5.63 m/uL (4.30-5.90); RDW 14.4 % (11.5-15.5); WBC 5.7 k/uL (3.8-10.6)
[2024-08-28] MEDS: SODIUM CHLORIDE 0.9% 1,000 ML IV STA (22:18)
[2024-08-28] MEDS: ONDANSETRON 4 MG/2 ML VIAL IVP STA (22:19)
[2024-08-28 22:21] LABS: INR 0.9 (<1.2); Partial Thromboplastin Time 24.9 sec (22.0-30.0); Prothrombin Time 10.4 sec (10.0-12.5)
[2024-08-28] MEDS: KETOROLAC 15 MG/ML 1 ML VIAL IVP STA (22:21)
[2024-08-28] MEDS: MORPHINE SULFATE 4 MG/ML SYRINGE IVP STA (22:23)
[2024-08-28 22:49] LABS: ALT 31 U/L (4-49); AST 32 U/L (17-59); African American GFR (CKD) 82 (>60 ml/min/1.73 sqM); Albumin 4.4 g/dL (3.5-5.0); Alkaline Phosphatase 88 U/L (38-126); Amylase 42 U/L (30-110); Anion Gap 7 mmol/L; Blood Urea Nitrogen 17 mg/dL (9-20); Calcium 8.9 mg/dL (8.4-10.2); Carbon Dioxide 28 mmol/L (22-30); Chloride 109 mmol/L (98-107); Glucose 100 mg/dL (74-99); Lipase 75 U/L (23-300); Non-African American GFR(CKD) 71 (>60 ml/min/1.73 sqM); Potassium 4.1 mmol/L (3.5-5.1); Sodium 144 mmol/L (137-145); Total Bilirubin 1.1 mg/dL (0.2-1.3); Total Protein 7.1 g/dL (6.3-8.2)
--- NOTE | 2024-08-28 22:50 | CT ---
EXAMINATION TYPE: CT abdomen pelvis wo con DATE OF EXAM: 08/28/2024 HISTORY: Pt presents with left flank pain started yesterday intermittent became severe tonight. hx of kidney stones CT DLP: 1200.1 mGycm. Automated Exposure Control for Dose Reduction was Utilized. TECHNIQUE: CT scan of the abdomen and pelvis is performed without oral or IV contrast. COMPARISON: Prior CT June 14, 2019 FINDINGS: Within the limitations of a non-contrast study, the following observations are made. LUNG BASES: No significant abnormality is appreciated. LIVER/GB: The liver is heterogeneously hypodense consistent with diffuse fatty infiltrative hepatocel lular disease. Cholecystectomy clips are redemonstrated. No new biliary dilatation. PANCREAS: No significant abnormality is seen. SPLEEN: No significant abnormality is seen. ADRENALS: No significant abnormality is seen. KIDNEYS: Possible punctate 1 mm nonobstructing calculus right kidney medially coronal image 66. No ri ght-sided hydronephrosis. There are 2 left-sided renal calculi on the current study measuring up to 6 mm in size, coronal image 76. There is 5 mm calculus in the proximal left ureter coronal image 69 causing mild to minimal left -sided hydronephrosis. No intraluminal calculus in the bladder. BOWEL: No significant abnormality is seen. GENITAL ORGANS: Slightly enlarged prostate gland bulging of bladder base is redemonstrated. LYMPH NODES: No greater than 1cm abdominal or pelvic lymph nodes are appreciated. OSSEOUS STRUCTURES: No significant abnormality is seen. OTHER: No significant additional abnormality is seen. IMPRESSION:. There is a 5 mm calculus in the proximal left ureter causing mild to minimal left-sided hydronephrosis. [facility], , 08/28/2024 10:48 PM
[2024-08-29 00:15] LABS: Appearance,Urine Clear (Clear); Bilirubin,Urine Negative (Negative); Blood,Urine Large (Negative); Color,Urine Yellow; Glucose,Urine (UA) Negative (Negative); Ketones,Urine Negative (Negative); Leukocyte Esterase,Urine Negative (Negative); Mucus,Urine Moderate /hpf; Nitrite,Urine Negative (Negative); PH, Urine 6.5 (5.0-8.0); Protein,Urine Trace (Negative); RBC,Urine >182 /hpf (0-5); Specific Gravity,Urine 1.019 (1.001-1.035); Urobilinogen,Urine <2.0 mg/dL (<2.0); WBC,Urine 2 /hpf (0-5)
[2024-08-29 01:13] VITALS: BP 145/98; PULSE 68; RESP 18; TEMP 98.1
== END 2024-08-29 01:12 | disposition home or self-care (01) ==
LOC: EC 21:00
DX: N13.2 Hydronephrosis with renal and ureteral calculous obstruction (principal)
CPT/HCPCS: 36415; 80053; 82150; 83690; 85025; 85610; 85730; 74176; 99284; 96374; 96375 ×2; 96361 ×3; J2270; J2405; J1885; 81001

== ENCOUNTER 2024-12-16 00:50 | Emergency (ER) | payer BC ==
[2024-12-16] MEDS: DEXAMETHASONE SOD PHOSPHATE 10 MG/ML 1 ML VIAL IM STA (01:21)
[2024-12-16] MEDS: ACETAMINOPHEN TAB 500 MG TAB PO STA (01:21)
--- NOTE | 2024-12-16 01:31 | ED ---
General Adult HPI - General Chief complaint: Upper Respiratory Infection Stated complaint: SOB Time Seen by Provider: 12/16/24 00:51 Source: patient, RN notes reviewed, old records reviewed Mode of arrival: wheelchair Limitations: no limitations - History of Present Illness Initial comments: 49-year-old male presenting with cough, dyspnea, fever and bodyaches. Patient has been sick for the past 2 days. He has a history of asthma. No central chest pain. No lower extremity pain or swelling. No abdominal pain nausea vomiting. - Related Data Home Medications Medication Instructions Recorded Confirmed lisinopriL [Prinivil] 10 mg PO DAILY 10/29/23 10/29/23 Previous Rx's Medication Instructions Recorded lisinopriL [Zestril] 10 mg PO DAILY 14 Days #14 tab 10/29/23 Ketorolac [Toradol] 10 mg PO Q12HR 7 Days #15 tab 08/29/24 Tamsulosin [Flomax] 0.4 mg PO DAILY #10 cap 08/29/24 Albuterol Inhaler [Ventolin Hfa 1 - 2 puff INHALATION Q4HR PRN #1 12/16/24 Inhaler] each Oseltamivir [Tamiflu] 75 mg PO Q12HR #10 cap 12/16/24 predniSONE 50 mg PO DAILY #5 tab 12/16/24 Allergies Allergy/AdvReac Type Severity Reaction Status Date / Time No Known Allergies Allergy Verified 12/16/24 00:52 Review of Systems ROS Statement: Those systems with pertinent positive or pertinent negative responses have been documented in the HPI. ROS Other: All systems not noted in ROS Statement are negative. Past Medical History Past Medical History: Asthma, Chest Pain / Angina, Hypertension Additional Past Medical History / Comment(s): HAS BEEN HAVING EPISODES OF BLACK STOOL FOR PAST MONTH History of Any Multi-Drug Resistant Organisms: None Reported Past Surgical History: Cholecystectomy Additional Past Surgical History / Comment(s): PAIN CLINIC PROCEDURE with injections, WISDOM TEETH Past Anesthesia/Blood Transfusion Reactions: No Reported Reaction Past Psychological History: No Psychological Hx Reported Smoking Status: Never smoker Past Alcohol Use History: Occasional Past Drug Use History: None Reported - Past Family History Father Family Medical History: Cancer General Exam Limitations: no limitations General appearance: alert, in no apparent distress Head exam: Present: atraumatic, normocephalic Eye exam: Present: normal appearance, PERRL Neck exam: Present: normal inspection. Absent: tenderness, meningismus Respiratory exam: Present: wheezes, decreased breath sounds. Absent: respiratory distress Cardiovascular Exam: Present: regular rate, normal rhythm GI/Abdominal exam: Present: soft. Absent: distended Neurological exam: Present: alert, oriented X3 Psychiatric exam: Present: normal affect, normal mood Skin exam: Present: warm, dry, intact. Absent: cyanosis, diaphoretic Course Vital Signs 12/16/24 00:52 Temperature 100 F H Pulse Rate 99 Respiratory 18 Rate Blood Pressure 141/88 O2 Sat by Pulse 96 Oximetry Medical Decision Making - Medical Decision Making Was pt. sent in by a medical professional or institution (, GER, [employer], urgent care, hospital, or alf...) When possible be specific @ -No Did you speak to anyone other than the patient for history (EMS, parent, family, police, friend...)? What history was obtained from this source @ -No Did you review nursing and triage notes (agree or disagree)? Why? @ -I reviewed and agree with nursing and triage notes Were old charts reviewed (outside hosp., previous admission, EMS record, old EKG, old radiological studies, urgent care reports/EKG's, alf records)? Report findings @ -No old charts were reviewed Differential Dyspnea: Coronary syndrome, arrhythmia, tamponade, asthma, COPD, pulmonary embolism, pneumonia, pneumothorax, pulmonary effusion, anaphylaxis, diabetic ketoacidosis, flailed chest, pulmonary contusion, diaphragmatic rupture, anemia, neuromuscular, this is not meant to be an all-inclusive list. EKG interpreted by me (3pts min.). @ -As above X-rays interpreted by me (1pt min.). @ -None done CT interpreted by me (1pt min.). @ -None done U/S interpreted by me (1pt. min.). @ -None done What testing was considered but not performed or refused? (CT, X-rays, U/S, labs)? Why? @ -None What meds were considered but not given or refused? Why? @ -None Did you discuss the management of the patient with other professionals (professionals i.e. , GER, [employer], lab, RT, psych nurse, addiction social worker, landscaper, teacher, classifications officer cc/cm, insurance case manager)? Give summary @ -No Was smoking cessation discussed for >3mins.? @ -No Was critical care preformed (if so, how long)? @ -No Were there social determinants of health that impacted care today? How? (Homelessness, low income, unemployed, alcoholism, drug addiction, transport ation, low edu. Level, literacy, decrease access to med. care, skilled nursing, rehab)? @ -No Was there de-escalation of care discussed even if they declined (Discuss DNR or withdrawal of care, Hospice)? DNR status @ -No What co-morbidities impacted this encounter? (DM, HTN, Smoking, COPD, CAD, Cancer, CVA, ARF, Chemo, Hep., AIDS, mental health diagnosis, sleep apnea, morbid obesity)? @ -[asthma Was patient admitted / discharged? Hospital course, mention meds given and route, prescriptions, significant lab abnormalities, going to OR and other pertinent info. @ -49-year-old male with 2 days of upper respiratory symptoms, cough congestion, fever myalgia and history of asthma with bilateral wheezing, no respiratory distress no hypoxia. Patient does test positive for influenza A. He is given steroids, Tamiflu, albuterol and Atrovent in the emergency department. Patient prescribed steroids and Tamiflu with strict return parameters and he should follow-up with his primary care provider. Undiagnosed new problem with uncertain prognosis? @ -No Drug Therapy requiring intensive monitoring for toxicity (Heparin, Nitro, Insulin, Cardizem)? @ -No Were any procedures done? @ -No Diagnosis/symptom? @ -Asthma exacerbation secondary to influenza A Acute, or Chronic, or Acute on Chronic? @Acute Uncomplicated (without systemic symptoms) or Complicated (systemic symptoms)? @ -Default Side effects of treatment? @ -No Exacerbation, Progression, or Severe Exacerbation? @ -No Poses a threat to life or bodily function? How? (Chest pain, [place], DC, pneumonia, PE, COPD, DKA, ARF, appy, cholecystitis, CVA, Diverticulitis, Homicidal, Suicidal, threat to staff... and all critical care pts) @Low risk at this time - Lab Data Lab Results 12/16/24 Range/Units 01:05 Influenza Type A (PCR) Detected A (Not Detectd) Influenza Type B (PCR) Not Detected (Not Detectd) RSV (PCR) Not Detected (Not Detectd) SARS-CoV-2 (PCR) Not Detected (Not Detectd) Disposition Clinical Impression: Influenza, Asthma exacerbation Disposition: HOME SELF-CARE Condition: Fair Instructions (If sedation given, give patient instructions): Asthma (ED), Influenza (ED) Prescriptions: predniSONE 50 mg PO DAILY #5 tab Oseltamivir [Tamiflu] 75 mg PO Q12HR #10 cap Albuterol Inhaler [Ventolin Hfa Inhaler] 1 - 2 puff INHALATION Q4HR PRN #1 each PRN Reason: Shortness Of Breath Is patient prescribed a controlled substance at d/c from ED?: No Referrals: Dmitri Palmer MD [Primary Care Provider] - 1-2 days Time of Disposition: 02:40
[2024-12-16 01:58] LABS: Influenza A Detected (Not Detectd); Influenza B Not Detected (Not Detectd); RSV Not Detected (Not Detectd)
[2024-12-16] MEDS: ALBUTEROL NEBULIZED 2.5 MG/3 ML INHALATION STA (02:11)
[2024-12-16] MEDS: IPRATROPIUM 0.5 MG/2.5 ML NEBU INHALATION STA (02:11)
[2024-12-16] MEDS: OSELTAMIVIR 75 MG CAP PO STA (02:34)
[2024-12-16 02:36] VITALS: BP 130/81; RESP 20
[2024-12-16 02:59] VITALS: PULSE 107
[2024-12-16 03:04] VITALS: TEMP 98.7
== END 2024-12-16 03:04 | disposition home or self-care (01) ==
LOC: EC 00:50
DX: J11.1 Influenza due to unidentified influenza virus with other respiratory manifestations (principal); J45.901 Unspecified asthma with (acute) exacerbation
CPT/HCPCS: 94640; 87636; 99285; 96372; J1100